=== PATIENT | female | born 1940 | race Caucasian/White ===

== ENCOUNTER 2019-10-14 19:26 | Inpatient (IN) | payer MEDICARE, SELFPAY ==
[2019-10-14] VITALS (7 sets, daily range): BP systolic 139–167; BP diastolic 80–104; PULSE 72–148; RESP 16–27; TEMP 36.8–37.1; O2SAT 96–99; BMI 18.9
--- NOTE | ~2019-10-14 | XR_ITS ---
EXAMINATION: XR chest 1V portable DATE: 10/21/2019 05:54 INDICATION: Pulmonary edema TECHNIQUE: frontal view of the chest was obtained. COMPARISON: Chest radiograph dated 10/20/2019, 10/19/2019 and 11/21/2018 FINDINGS: Chronic elevation of the right hemidiaphragm. Paramediastinal mass in the right upper lobe consistent with known lung cancer. No significant change in airspace opacities in the right perihilar region an d throughout the left lung. No pneumothorax or right-sided pleural effusion. Possible small left pleu ral effusion. Heart size is normal. Vertebroplasties at a few levels in the thoracic and upper lumbar spine. Cholecystectomy clips in the right upper quadrant. IMPRESSION: 1. No significant interval change in bilateral lung disease, left greater than right which could repr esent pulmonary edema versus pneumonia with possible small left pleural effusion. 2. Paramediastinal right upper lobe mass consistent with primary bronchogenic carcinoma. 3. Chronic elevation of the right hemidiaphragm consistent with phrenic nerve palsy. Reviewed, dictated and finalized at location A. IMPRESSION: 1. No significant interval change in bilateral lung disease, left greater than right which could represent pulmonary edema versus pneumonia with possible smal l left pleural effusion. 2. Paramediastinal right upper lobe mass consistent with primary bronchogenic c arcinoma. 3. Chronic elevation of the right hemidiaphragm consistent with phrenic nerve p alsy.
--- NOTE | ~2019-10-14 | XR_ITS ---
EXAMINATION: XR chest 1V portable DATE: 10/20/2019 08:22 INDICATION: Pulmonary edema. TECHNIQUE: A single frontal view of the chest was obtained. COMPARISON: Chest single view 10/19/2019, chest CT 07/20/2019 FINDINGS: The patient is rotated to her left. There is a mass in paramediastinal right upper lobe. Th ere are airspace opacities in right perihilar region and in all left lung zones. There is persistent elevation of right hemidiaphragm. No pleural effusion or pneumothorax. There is a prominent left para cardial fat pad. The heart size is normal. There are changes of vertebroplasty at multiple levels. Villegas rgical clips in the right upper quadrant are likely from cholecystectomy. IMPRESSION: 1. Multifocal lung disease with improvement on the right, consistent with pulmonary edema versus pneu monia. 2. Mass in right upper lobe, consistent with primary bronchogenic carcinoma. 3. Persistent elevation of right hemidiaphragm, consistent with phrenic nerve palsy. Reviewed, dictated and finalized at location A. IMPRESSION: 1. Multifocal lung disease with improvement on the right, consistent with pulmo nary edema versus pneumonia. 2. Mass in right upper lobe, consistent with primary bronchogenic carcinoma. 3. Persistent elevation of right hemidiaphragm, consistent with phrenic nerve p alsy.
--- NOTE | ~2019-10-14 | XR_ITS ---
EXAMINATION: XR chest 1V portable INDICATION: Pulmonary edema TECHNIQUE: Portable AP chest at 0730 hours COMPARISON: 10/21/2019 FINDINGS: Diffuse airspace opacities persist but have improved, particularly in the right lower lung zone. There is unchanged elevation of the right hemidiaphragm. A right upper lobe paramediastinal mas s is again noted. The heart size is normal. Vertebroplasty changes are noted. There is no pleural eff usion or pneumothorax. Surgical clips in the right upper quadrant are likely from prior cholecystecto my. IMPRESSION: 1. Diffuse lung disease with improvement, consistent with pulmonary edema and/or pneumonia. 2. Paramediastinal right upper lobe mass, consistent with primary bronchogenic carcinoma. Reviewed, dictated and finalized at location A. IMPRESSION: 1. Diffuse lung disease with improvement, consistent with pulmonary edema and/o r pneumonia. 2. Paramediastinal right upper lobe mass, consistent with primary bronchogenic carcinoma.
--- NOTE | ~2019-10-14 | XR_ITS ---
EXAMINATION: XR chest 1V portable DATE: 10/18/2019 06:24 INDICATION: Respiratory failure. TECHNIQUE: A single frontal view of the chest was obtained. COMPARISON: Chest single view 10/17/2019 FINDINGS: Again seen is a mass in paraspinal right upper lobe. There is a nodule in left upper lobe. There is persistent elevation of right hemidiaphragm. There are airspace opacities in right perihilar region and left lower lung zone. There is a small left pleural effusion. No pneumothorax. The heart size is normal. There are changes of vertebroplasty at multiple levels. The nasogastric tube tip is i n the distal stomach. Surgical clips in the right upper quadrant are likely from cholecystectomy. IMPRESSION: 1. Mass in right upper lobe, consistent with primary bronchogenic carcinoma. 2. Nodule in left upper lobe, consistent with metastatic disease. 3. Persistent elevation of right hemidiaphragm, consistent with phrenic nerve palsy. 4. Airspace opacities in right perihilar region and left lower lung zone with improvement on the left and worsening on the right, consistent with atelectasis versus pneumonia. 5. Small left pleural effusion with interval improvement. Reviewed, dictated and finalized at location A. IMPRESSION: 1. Mass in right upper lobe, consistent with primary bronchogenic carcinoma. 2. Nodule in left upper lobe, consistent with metastatic disease. 3. Persistent elevation of right hemidiaphragm, consistent with phrenic nerve p alsy. 4. Airspace opacities in right perihilar region and left lower lung zone with i mprovement on the left and worsening on the right, consistent with atelectasis versus pneumonia. 5. Small left pleural effusion with interval improvement.
--- NOTE | ~2019-10-14 | US_ITS ---
EXAMINATION: US art doppler w press LE NELA EXAM DATE: 10/16/2019 13:46 INDICATION: Cool extremities. TECHNIQUE: Segmental pressures and plethysmographic and Doppler waveforms of the brachial and lower e xtremity arteries were obtained. There is no prior study for comparison. FINDINGS: Right and left brachial artery pressures of 161 mm Hg and 166 mm Hg, respectively, are concordant (no rmal difference <= 30 mmHg). RIGHT LEG: The ankle-brachial index (JACKSON) is 0.58 (normal >= 0.9-1). The lower extremity ratios, segmental pressure gradients as follows; Dorsalis pedis: 0.46 (76 mmHg). Posterior tibial: 0.58 (96 mmHg). (Normal gradients <= 20-30 mmHg between adjacent levels on the same leg or the same levels on the two legs). Arterial waveforms are biphasic above the knee, monophasic below. LEFT LEG: The ankle-brachial index (JACKSON) is 0.66 (normal >= 0.9-1). The lower extremity ratios, segmental pressure gradients as follows; Dorsalis pedis: 0.66 (110 mmHg). Posterior tibial: 0.56 (93 mmHg). (Normal gradients <= 20-30 mmHg between adjacent levels on the same leg or the same levels on the two legs). Arterial waveforms are biphasic above the knee, monophasic below. IMPRESSION: 1. Right ankle-brachial index 0.58, mild to moderately decreased. 2. Left ankle-brachial index 0.66, mild to moderately decreased. 3. Segmental pressures as above. Reviewed, dictated and finalized at location A.
--- NOTE | ~2019-10-14 | XR_ITS ---
EXAMINATION: XR chest ET placement DATE: 10/15/2019 01:01 INDICATION: Intubation. TECHNIQUE: A single frontal view of the chest was obtained. COMPARISON: Chest single view 10/14/2019, chest CT 07/20/2019 FINDINGS: Again seen is marked elevation of right hemidiaphragm. There is a mass in paramediastinal r ight upper lobe. There is a nodule in left upper lobe. There are airspace opacities in the mid and lo wer lung zones. There is a small right pleural effusion. No pneumothorax. The heart size is normal. T he endotracheal tube tip is 4.8 cm above the jimbo. The nasogastric tube tip is beyond the inferior margin of the radiograph, but at least to the stomach. Surgical clips in the right upper quadrant are likely from cholecystectomy. There are changes of vertebroplasty at multiple levels. IMPRESSION: 1. Worsened airspace opacities in the mid and lower lung zones, consistent with atelectasis versus pn eumonia. 2. Mass in paramediastinal right upper lobe, consistent with primary bronchogenic carcinoma. 3. Nodule in left upper lobe, consistent with metastatic disease. 4. Unchanged marked elevation of right hemidiaphragm, likely secondary to phrenic nerve palsy. 5. Small right pleural effusion. Reviewed, dictated and finalized at location A. IMPRESSION: 1. Worsened airspace opacities in the mid and lower lung zones, consistent with atelectasis versus pneumonia. 2. Mass in paramediastinal right upper lobe, consistent with primary bronchogen ic carcinoma. 3. Nodule in left upper lobe, consistent with metastatic disease. 4. Unchanged marked elevation of right hemidiaphragm, likely secondary to phren ic nerve palsy. 5. Small right pleural effusion.
--- NOTE | ~2019-10-14 | CT_ITS ---
EXAMINATION: CT brain wo con INDICATION: Altered mental status COMPARISON: 07/22/2019 TECHNIQUE: Standard unenhanced head CT. The dose-length product (DLP) was 681.00 mGy-cm. The mA was a djusted according to patient size. Iterative reconstruction technique was employed. FINDINGS: Examination is limited by motion artifact and streak artifact from hands stabilizing the he ad. There is no acute intraparenchymal hemorrhage. No evidence of mass lesion. No evidence of acute i nfarction. There is mild periventricular and subcortical hypodensity probably related to small vessel ischemic disease. There is mild prominence of the sulci and ventricles related to cerebral atrophy. Intracranial calcified cerebral atherosclerosis is noted. There are no extra-axial collections. There is no mass effect or midline shift. The orbits and soft tissues are unremarkable. The visualized si nuses and mastoid air cells are well aerated. IMPRESSION: 1. No acute intracranial abnormality. 2. Age related findings. Reviewed, dictated and finalized at location A.
--- NOTE | ~2019-10-14 | XR_ITS ---
EXAMINATION: XR chest 1V portable DATE: 10/17/2019 06:28 INDICATION: Respiratory failure. TECHNIQUE: A single frontal view of the chest was obtained. COMPARISON: Chest single view 10/16/2019, chest CT 07/20/2019 FINDINGS: Again seen is a mass in paramediastinal right upper lobe. There is a nodule in left upper l obe. There is persistent elevation of right hemidiaphragm, consistent with phrenic nerve palsy. There is mild atelectasis at right lung base. There are airspace opacities in left lower lung zone. There is a small left pleural effusion. No pneumothorax. The heart size is normal. There are changes of antonio tebroplasty at multiple levels. The endotracheal tube tip is 1.3 cm above the jimbo. The nasogastric tube tip is in the distal stomach. Surgical clips in the right upper quadrant are likely from cholec ystectomy. IMPRESSION: 1. Mass in paramediastinal right upper lobe, consistent with primary bronchogenic carcinoma. 2. Nodule in left upper lobe, consistent with metastatic disease. 3. Worsened airspace opacities at left lung base, consistent with atelectasis versus pneumonia. 4. Worsened small left pleural effusion. 5. Persistent elevation of right hemidiaphragm, consistent with phrenic nerve palsy. Reviewed, dictated and finalized at location A. IMPRESSION: 1. Mass in paramediastinal right upper lobe, consistent with primary bronchogen ic carcinoma. 2. Nodule in left upper lobe, consistent with metastatic disease. 3. Worsened airspace opacities at left lung base, consistent with atelectasis v ersus pneumonia. 4. Worsened small left pleural effusion. 5. Persistent elevation of right hemidiaphragm, consistent with phrenic nerve p alsy.
--- NOTE | ~2019-10-14 | XR_ITS ---
EXAMINATION: XR abdomen NG/feed tube insert DATE: 10/15/2019 01:01 INDICATION: Nasogastric tube placement. TECHNIQUE: An upright view of the abdomen was obtained. COMPARISON: Abdomen radiograph 10/13/2018 FINDINGS: The lower abdomen is excluded. There are no visible dilated loops of bowel. Surgical clips in the right upper quadrant are likely from cholecystectomy. The nasogastric tube tip is in the dist al stomach. IMPRESSION: 1. Nasogastric tube tip in the distal stomach. Reviewed, dictated and finalized at location A.
--- NOTE | ~2019-10-14 | US_ITS ---
EXAMINATION: US renal BI DATE: 10/19/2019 09:12 INDICATION: Acute kidney injury. TECHNIQUE: Multiple ultrasound grayscale images of the kidneys were obtained. COMPARISON: CT abdomen and pelvis 07/20/2018 FINDINGS: The right kidney is obscured by bowel The left kidney measures 10.2 x 4.1 x 4.0 cm. The left kidney d emonstrates normal parenchymal echogenicity. There is no left-sided hydronephrosis. The bladder is no t well visualized. IMPRESSION: 1. Normal sized left kidney. No left-sided hydronephrosis. Right kidney not visualized. Reviewed, dictated and finalized at location A. IMPRESSION: 1. Normal sized left kidney. No left-sided hydronephrosis. Right kidney not vi sualized.
--- NOTE | ~2019-10-14 | XR_ITS ---
EXAMINATION: XR chest 1V portable DATE: 10/19/2019 07:39 INDICATION: Respiratory distress. TECHNIQUE: A single frontal view of the chest was obtained. COMPARISON: Chest single view 10/18/2019 FINDINGS: Again seen is a mass in paraspinal right upper lobe. There are patchy airspace opacities in volving all lung zones bilaterally. There is persistent elevation of right hemidiaphragm. There is a small left pleural effusion. No pneumothorax. The heart size is normal. There are changes of vertebro plasty at multiple levels. There is a healed fracture of right seventh rib. Surgical clips in the rig ht upper quadrant are likely from cholecystectomy. IMPRESSION: 1. Worsened diffuse lung disease, consistent with pulmonary edema versus pneumonia. 2. Mass in right upper lobe, consistent with primary bronchogenic carcinoma. 3. Persistent elevation of right hemidiaphragm, consistent with phrenic nerve palsy. Reviewed, dictated and finalized at location A. IMPRESSION: 1. Worsened diffuse lung disease, consistent with pulmonary edema versus pneumo clarisse. 2. Mass in right upper lobe, consistent with primary bronchogenic carcinoma. 3. Persistent elevation of right hemidiaphragm, consistent with phrenic nerve p alsy.
--- NOTE | ~2019-10-14 | XR_ITS ---
EXAMINATION: XR chest 1V portable DATE: 10/16/2019 06:10 INDICATION: Respiratory failure. TECHNIQUE: A single frontal view of the chest was obtained. COMPARISON: Chest single view 10/15/2019 FINDINGS: Again seen is a mass in paramediastinal right upper lobe. Again seen is a nodule in left up per lobe. There are airspace opacities in right mid and lower lung zones and left lower lung zone. No pleural effusion or pneumothorax. The heart size is normal. The endotracheal tube tip is 1.5 cm abov e the jimbo. The nasogastric tube tip is beyond the inferior margin of the radiograph, but at least to the stomach. Surgical clips in the right upper quadrant are likely from cholecystectomy. There are changes of vertebroplasty at multiple levels. IMPRESSION: 1. Airspace opacities in right mid and lower lung zones and left lower lung zones with worsening on t he left, consistent with atelectasis versus pneumonia. 2. Mass in paramediastinal right upper lobe, consistent with primary bronchogenic carcinoma. 3. Nodule in left upper lobe, consistent with metastatic disease. Reviewed, dictated and finalized at location A. IMPRESSION: 1. Airspace opacities in right mid and lower lung zones and left lower lung zon es with worsening on the left, consistent with atelectasis versus pneumonia. 2. Mass in paramediastinal right upper lobe, consistent with primary bronchogen ic carcinoma. 3. Nodule in left upper lobe, consistent with metastatic disease.
--- NOTE | ~2019-10-14 | XR_ITS ---
EXAMINATION: XR chest 1V portable INDICATION: Shortness of breath, transient alteration of awareness TECHNIQUE: Portable AP chest at 2009 hours COMPARISON: 07/20/2019 FINDINGS: There is a mild diffuse interstitial pattern. There is unchanged elevation of the right hem idiaphragm. Again noted is a paramediastinal mass of the right upper lobe. No pleural effusion or pne umothorax is identified. Cardiomegaly is noted. There are vertebroplasty changes of the spine. IMPRESSION: 1. Cardiomegaly with possible mild pulmonary edema. 2. Mediastinal mass of the right upper lobe, consistent with known adenocarcinoma. Reviewed, dictated and finalized at location A. IMPRESSION: 1. Cardiomegaly with possible mild pulmonary edema. 2. Mediastinal mass of the right upper lobe, consistent with known adenocarcino ma.
--- NOTE | 2019-10-14 19:29 | ED.SOB ---
HPI - SOB/Dyspnea General Chief Complaint: Shortness of Breath/Dyspnea Stated Complaint: respiratory distress Time Seen by Provider: 10/14/19 19:29 Source: family and EMS Mode of arrival: EMS Limitations: no limitations History of Present Illness HPI Narrative: Patient is a 79 year old female who presents to the emergency department via EMS, from home with complaints of shortness of breath. Per EMS, patient has a history of stage 4 lung cancer and she recently had changes in her medications. Patients daughter and are her power of assistant district attorney's and they state that she is a full code. EMS placed her on 15 liters of oxygen en route. She later spoke 2 complete sentences and she denies abdominal pain, chest pain, headache, or back pain. Per patients daughter, she is supposed to get a port put in on in 2 days and is supposed to start IV chemo. She has been seeing Dr. Ari Quarles at [facility]. She saw her oncologist last and had her amlodipine changed from taking it at night to taking it during the day. Patients blood pressure has been up since January and she has stage 4 kidney disease. She was supposed to see a cardiology oncologist. Patient has a history of orthostatic hypotension and was seeing Dr. Lipscomb for it. Daughter states that today her pulse was 165 and when she stood up it was 70. She has been having frequent falls. She is also supposed to cut down on her steroids. Patient lives at home with and daughter. She has a home health nurse that sees her. MD elicited complaint: shortness of breath Pertinent past history: other (stage 4 lung cancer) Timing: progressively worsening Known history of: other (stage 4 lung cancer) Treatment prior to arrival: oxygen Related Data Home Medications Medication Instructions Recorded Confirmed acetaminophen 500 mg tablet 1,000 mg PO .q7-8h PRN tablet 05/14/19 07/20/19 amlodipine 10 mg tablet 10 mg PO DAILY 05/14/19 07/20/19 aspirin 81 mg tablet,delayed 81 mg PO DAILY 05/14/19 07/20/19 release calcitriol 0.25 mcg capsule 0.25 mcg PO DAILY 05/14/19 07/20/19 calcium carbonate 400 mg calcium 400 mg PO DAILY 05/14/19 07/20/19 (1,000 mg) chewable tablet cyclobenzaprine 10 mg tablet 5 mg PO TID tablet 05/14/19 07/20/19 denosumab 60 mg/mL subcutaneous 60 mg SUB-Q [id number] 05/14/19 07/20/19 syringe docusate sodium 100 mg capsule 100 mg PO BID 05/14/19 07/20/19 ergocalciferol (vitamin D2) 1,250 50,000 unit PO WEEKLY 05/14/19 07/20/19 mcg (50,000 unit) capsule escitalopram oxalate 10 mg tablet 10 mg PO DAILY 05/14/19 07/20/19 fludrocortisone 0.1 mg tablet 0.1 mg PO DAILY 05/14/19 07/20/19 hydrocodone 7.5 mg-acetaminophen 1 tablet PO TID PRN tablet 05/14/19 07/20/19 325 mg tablet levothyroxine 88 mcg tablet 88 mcg PO DAILY 05/14/19 07/20/19 ondansetron 4 mg disintegrating 8 mg PO Q12H tablet 05/14/19 07/20/19 tablet pantoprazole 40 mg tablet,delayed 40 mg PO QAM 05/14/19 07/20/19 release polyethylene glycol 3350 17 17 gm PO DAILY 05/14/19 07/20/19 gram/dose oral powder prednisone 5 mg tablet 5 mg PO DAILY 05/14/19 07/20/19 diclofenac sodium 1 % gel topical 2 gm TOPICAL QID 05/20/19 07/20/19 kit Allergies Allergy/AdvReac Type Severity Reaction Status Date / Time ciprofloxacin Allergy Unknown Unknown Verified 10/14/19 19:41 butorphanol AdvReac Unknown HYPOTENSION Verified 10/14/19 19:41 meperidine AdvReac Unknown HYPOTENSION Verified 10/14/19 19:41 oxycodone AdvReac Unknown SEVERE Verified 10/14/19 19:41 CONFUSION Contrast Media Allergy Intermediate Other Uncoded 07/20/19 03:08 Review of Systems Review of Systems: All systems reviewed & are unremarkable except as noted in HPI and below Cardiovascular: Cardiovascular: Denies chest pain Gastrointestinal: Gastrointestinal: Denies abdominal pain Musculoskeletal: Musculoskeletal: Denies back pain Neurologic: Denies headache(s) PMFSH Past Medical History Medical History (Rev
--- NOTE | 2019-10-14 19:44 | ECG_ITS ---
Measurements Intervals [place] Rate: 153 P: DE: 0 QRS: 109 QRSD: 131 T: -13 QT: 272 QTc: 434 Interpretive Statements ATRIAL FIBRILLATION WITH RAPID VENTRICULAR RESPONSE RIGHT AXIS DEVIATION RIGHT BUNDLE BRANCH BLOCK BASELINE ARTIFACT- V1-V3 ABNORMAL ECG Electronically Signed On 10-15-2019 7:09:29 CDT by Dawson Zamora D.O.
--- NOTE | 2019-10-14 19:44 | PC.NURSE ---
EDP in room at this time.
[2019-10-14 20:02] LABS: Basophils Percent Auto 0.2 % (0.2-1.2); Hematocrit 41.7 % (37.0-47.0); Hemoglobin 12.7 g/dL (12.0-15.0); Immature Granulocyte Absolute 0.09 K/mm3 (0.00-0.031); Immature Granulocyte Percent A 0.8 % (0-0.5); Lymphocytes Absolute Auto 0.47 K/mm3 (0.9-3.2); Lymphocytes Percent Auto 4.3 % (18.3-44.2); Mean Corpuscular HGB Conc 30.5 g/dl (32-36); Mean Corpuscular Hemoglobin 30.2 pg (26-34); Monocytes Absolute Auto 0.3 K/mm3 (0.1-0.6); Neutrophils Percent Auto 91.7 % (45.5-73.1); Platelet Count Result 236 k/mm3 (150-375); Red Blood Count 4.21 M/mm3 (4.2-5.4); Red Cell Distribution Width 13.5 % (11.5-14.5); White Blood Count 10.9 K/mm3 (4.5-10.0)
[2019-10-14 20:09] LABS: Ovalocytes 1+ (NORMAL); Platelet Estimate Adequate (Adequate)
[2019-10-14] MEDS: SODIUM CHLORIDE 0.9% IV 500 ML 999 ML IV CONT (20:12)
[2019-10-14 20:14] LABS: Lactic Acid 4.7 mmol/L (0.7-2.1)
[2019-10-14 20:15] LABS: Albumin Level 4.3 g/dL (3.5-5.1); Alkaline Phosphatase 51 U/L (38-126); Aspartate Amino Transferase 82 U/L (14-36); Bilirubin,Total 1.4 mg/dL (0.2-1.3); Blood Urea Nitrogen 30 mg/dL (7-17); Calcium 9.2 mg/dL (8.4-10.2); Carbon Dioxide 27 mmol/L (22-30); Chloride 95 mmol/L (98-107); Estimated Glomerular Filt Rate 26; Glucose 219 mg/dL (65-105); Potassium 4.4 mmol/L (3.4-5.0); Sodium 136 mmol/L (137-145)
[2019-10-14 20:21] LABS: Alanine Aminotransferase 45 U/L (4-35)
[2019-10-14 20:22] LABS: NT Pro B Type Natriuretic Pept 9620 PG/ML (5-100)
[2019-10-14 20:28] LABS: Troponin I 0.106 ng/mL (0.000-0.034)
[2019-10-14] MEDS: LORAZEPAM INJ 2 MG/ML VIAL 0.5 MG IV PUSH (20:44)
--- NOTE | 2019-10-14 21:00 | ECG_ITS ---
Measurements Intervals [place] Rate: 73 P: -4 NM: 167 QRS: 70 QRSD: 140 T: 22 QT: 422 QTc: 466 Interpretive Statements SINUS RHYTHM ATRIAL PREMATURE COMPLEX RIGHT BUNDLE BRANCH BLOCK ABNORMAL ECG Electronically Signed On 10-15-2019 7:10:43 CDT by Dawson Zamora D.O.
[2019-10-14 21:46] LABS: Add Urine Microscopic? YES; Appearance Urine Clear (Clear); Bacteria Urine Trace /hpf; Bilirubin Urine Negative (Negative); Blood Urine Negative (Negative); Color Urine Yellow (Yellow); Glucose Urine UA Negative (Negative); Hyaline Casts Urine 15-19 /lpf; Ketones Urine Negative (Negative); Leukocyte Esterase Ur Negative LEU/UL (Negative); Mucus Urine Rare /lpf; Nitrate Urine Negative (Negative); Protein Urine 3+ mg/dL (Negative); Specific Grav Ur 1.015 (1.001-1.035); Squamous Epithelial Cell Urine Rare /hpf (Few); Urobilinogen Urine Negative mg/dL (<2.0); WBC Urine 0-3 /hpf
[2019-10-14 23:16] LABS: Alveolar/Arterial O2 Gradient 571.5 mmHg; Base Excess ABG 3.3 mEq/l (+/-2.0); Carboxyhemoglobin 0.3 % THb (0-2.0); Fractional Inspired Oxygen 100 %; Methemoglobin ABG 0.2 %THb (0-1.5); Oxygen Content ABG 16.5 %vol (16.0-22.0); Oxygen Saturation ABG 94.3 % (95.0-100.0); Oxyhemoglobin 94.2 % THb (90.0-100.0); PO2 ABG 78.8 mmHg (80.0-100.0); PO2 FiO2 Ratio Arterial Blood 0.79 %; Reduced Hemoglobin 5.3 %THb (0-5.0); Total Hemoglobin 12.4 g/dL (12.0-18.0); pH ABG 7.312 (7.350-7.450)
[2019-10-14 23:17] LABS: Device NON-REBREATHER MASK; Modified Allen's Test Unable to perform; PCO2 ABG 62.7 mmHg (35.0-45.0); Site Drawn LEFT RADIAL
--- NOTE | 2019-10-14 23:19 | PM.IMHP ---
H&P: HPI History of Present Illness Chief complaint: Altered mental status Narrative: Laura Capps is a 79 year old female with a past medical history of stage IV non-small cell lung cancer, COPD with emphysema, chronic kidney disease stage III and SLE who presented to the ER with altered mental status and respiratory distress. Patient arrived to the ER in severe respiratory distress with accessory muscle use and inability to talk. Patient's pulse ox was 78% on 3 L at home. She was placed on a non-rebreather and her oxygen saturations increased to 97%. The patient is usually on 2 L nasal cannula at home. According to the ER note the patient's daughter reported that patient was supposed to get a port placed in 2 days to start IV chemotherapy. The patient is treated by Dr. Ari saenz at [facility]. She she last saw her oncologist 5 days ago. Her amlodipine was switched from nighttime dosing to taking and in the morning. Patient's blood pressure had been up since January. However during prior evaluations the patient's daughter had stated that the patient's doctors want the patient's blood pressures to be slightly above expected values due to history of orthostatic hypotension. The patient's blood pressure was 165 systolic but when she stood up it dropped to 70. Patient has having frequent falls. The patient was recently told the cut back her steroids. During her recent hospitalization the patient and her family reported that the patient was was have vocal cord transplants 2 days after she was discharged in July which according to the ER records it appears that this did occur. While in the ER the patient was in AFib RVR received a 10 mg Cardizem bolus and was started on a Cardizem drip. Subsequently her rhythm returned to normal sinus rhythm. Per ER physician report once the patient's rhythm had returned to normal the patient woke up and was sitting up and talking. The patient requested something for her anxiety and she received a half a mg of Ativan IV. However the patient remained on a non-rebreather at 15 L of oxygen. ER staff was unable to wean the patient's oxygen requirement. Nursing staff called me when the patient arrived to the IMU before she could before the patient was even removed from the ER stretcher. The patient was noted to be tachypneic with respiratory rate of around 30 with significant accessory muscle use. She would open her eyes to noxious stimuli but would not otherwise respond. Decision was made at that time to place the patient in the ICU instead of IMU and obtain a stat ABG. The patient's ABG demonstrated respiratory acidosis with pCO2 of 62.7. The patient does not have a history of chronic CO2 retention. The patient's family reiterated that patient was a full code and would want the patient intubated if she needed to be. Subsequently the patient was intubated and placed on the ventilator. Per the ER physician report the patient stated that she wanted to live for least another 30 days. Review of Systems Review of Systems: ROS unobtainable: Yes unobtainable due to medical condition PMFSH Past Medical History Medical History (Updated 10/15/19 @ 03:28 by Ramona Staley, ) Anxiety Chronic anemia Upper and lower endoscopies per Dr. Robertson in December 2018 showed proximal esophageal ulcer associated with radiation therapy and sigmoid diverticulosis as well as internal hemorrhoids, respectively. Chronic kidney disease Stage 3 to 4. Baseline creatinine appears to run between 1.3 and 1.90. Chronic pain syndrome On long-term opioid therapy. Chronic respiratory failure COPD with emphysema Degenerative disc disease With chronic lumbago and history of vertebral compression fractures status post vertebroplasty. Diastolic congestive heart failure Echocardiogram November 2018 demonstrating mild concentric left ventricular hypertrophy with sigmoid hypertrophy of the septum, diastolic dysfunction, increased left heart filling p
[2019-10-15] VITALS (21 sets, daily range): BP systolic 147–188; BP diastolic 67–122; PULSE 63–88; RESP 15–20; TEMP 36.4–37.1; O2SAT 97–100; BMI 18.9
--- NOTE | 2019-10-15 | ECHO_ITS ---
Patient Info Name: Laura Capps Age: 79 years : 1940 Gender: Female Ht: 62 in Wt: 104 lbs BSA: 1.43 m2 HR: 70 bpm BP: 167 / 77 mmHg Heart Rhythm: Sinus Rhythm Technical Quality: Good Exam Date: 10/15/2019 1:34 PM Exam Location: [facility] Patient Status: Inpatient Admit Date: 10/15/2019 Staff Ordering Physician: Delfina Clemens MD Nursing Services Manager: Luis Dorsey RDCS Attending Provider: Ramona Staley DO Referring Physician: Sarath JO; Exam Type: CA echo doppler color flow Study Info Indications I48.0 - Paroxysmal atrial fibrillation Complete two-dimensional, color flow and Doppler transthoracic echocardiogram is performed. Strain analysis performed. History/Risk Factors Atrial fibrillation; elevated trops, CKD IV, COPD, HFpEF, HTN, acute respiratory failure w/ hypoxia, NSCLC. Summary 1. Left ventricular systolic function is mildly reduced, estimated at 50-55%. 2. Left ventricular chamber dimension is normal. 3. There is moderately increased left ventricular wall thickness. 4. The left ventricular diastolic function is grade I diastolic dysfunction. 5. Left atrial chamber dimension is severely enlarged. 6. There is moderate aortic valve sclerosis. 7. There is mild to moderate aortic valve regurgitation. 8. There is mild mitral valve stenosis. 9. There is mild to moderate mitral valve regurgitation. 10. The mitral valve has thickened leaflets and calcified annulus. 11. There is mild tricuspid valve regurgitation. 12. Moderate pulmonary hypertension, estimated pulmonary arterial systolic pressure is 47 mmHg. 13. There is mild pulmonic regurgitation. Left Ventricle Left ventricular systolic function is mildly reduced, estimated at 50-55%. Left ventricular chamber dimension is normal. There is moderately increased left ventricular wall thickness. The left ventricular diastolic function is grade I diastolic dysfunction. Right Ventricle Right ventricular chamber dimension is normal. Right ventricular systolic function is normal. Left Atria Left atrial chamber dimension is severely enlarged. Right Atria Right atrial chamber dimension is normal. Atrial Septum Intact interatrial septum visualized by color flow imaging. Aortic Valve The aortic valve is trileaflet. There is moderate aortic valve sclerosis. There is no aortic valve stenosis. There is mild to moderate aortic valve regurgitation. Pulmonic Valve The pulmonic valve is normal. There is no pulmonic valve stenosis. There is mild pulmonic regurgitation. Mitral Valve The mitral valve has thickened leaflets and calcified annulus. There is mild mitral valve stenosis. There is mild to moderate mitral valve regurgitation. Tricuspid Valve The tricuspid valve leaflets are normal. There is no significant tricuspid valve stenosis. There is mild tricuspid valve regurgitation. Moderate pulmonary hypertension, estimated pulmonary arterial systolic pressure is 47 mmHg. Pericardium/Pleural The pericardium appears normal. There is trivial pericardial effusion. Inferior Vena Cava Dilated inferior vena cava with <50% collapse upon inspiration consistent with elevated right atrial pressure, 10 mmHg. Aorta The aortic root size at the sinus of Valsalva is normal. The prox ascending aorta size is normal. There is mild aortic atherosclerosis. Left Ventricular Outflow Tract
--- NOTE | 2019-10-15 00:06 | PC.NURSE ---
This patient, Laura Capps, was transferred to ICU-9 FROM IMU 202 DUE TO RESP. DISTRESS 10/14/19 at 2330. Personal belongings sent with patient. Belongings list checked and signed with receiving [ ]. Report given to SNOW CAMERON. Appropriate documentation sent with patient. HERE AT BS AFTER CALLING HER ABOUT PT. RESP. DISTRESS. PT. WAS TRANSFERRED TO ICU FOR POSS. INTUBATION. UPON PT. BEING ADM. TO RM 202 BEFORE REMOVING PT. FROM STRETCHER I ASKED EDRN ABOUT HER BREATHING WITH 100% NON-REBREATHING. I NOTED PT. USING ALL ACCESSORY MUSCLES AND BREATHING OVER [address]. I CALL[address] DR[address] DHZ TO SEE PT. AFTER ASSESSED PT. SHE DECIDED TO ADMIT TO ICU INSTEAD OF IMU.
[2019-10-15 00:13] LABS: Partial Thromboplastin Time 25.7 SECONDS (22.3-36.8)
[2019-10-15 00:14] LABS: Lactic Acid Reflex 1.2 mmol/L (0.7-2.1)
--- NOTE | 2019-10-15 00:17 | P.PCNBED_ITS ---
Procedures Intubation: Intubation Date: 10/15/19 Intubation Time: 00:05 A pre- procedural Time-Out was completed immediately before starting the procedure and confirmed: Patient Identification, Site, Procedure, Patient Position and the Availability of Requisite Equipment: Yes Sedative: etomidate Mg given: 15 Paralytic: succinylcholine Mg given: 15 Laryngoscope: fiber optic video scope ET tube size: 6.5 Tube secured depth (cm): 22 Tube secured locat ion: teeth Tube placement confirmation: visualized tube passing through cords, equal breath sounds bilaterally, no breath sounds over epigastrium and confirmation by capnometry Patient tolerated procedure: well Intubation complications: none
[2019-10-15] MEDS: PROPOFOL IV EMULSION 100 ML 5.6 MG IV CONT (00:20)
[2019-10-15 01:10] LABS: Troponin I 0.135 ng/mL (0.000-0.034)
[2019-10-15 01:34] LABS: Alveolar/Arterial O2 Gradient 377.7 mmHg; Carboxyhemoglobin 0.3 % THb (0-2.0); Fractional Inspired Oxygen 70 %; HCO3 ABG 28.9 mEq/l (22.0-26.0); Methemoglobin ABG 0.3 %THb (0-1.5); Oxygen Content ABG 16.4 %vol (16.0-22.0); Oxygen Saturation ABG 96.3 % (95.0-100.0); Oxyhemoglobin 95.4 % THb (90.0-100.0); PCO2 ABG 40.3 mmHg (35.0-45.0); PO2 ABG 78.1 mmHg (80.0-100.0); PO2 FiO2 Ratio Arterial Blood 1.12 %; Total Hemoglobin 12.2 g/dL (12.0-18.0); pH ABG 7.474 (7.350-7.450)
[2019-10-15 01:35] LABS: Arterial Blood Gas PEEP 5 cmH2O; Arterial Blood Gas Tidal Volume 650 ml; Arterial Blood Gas Vent Mode CMV; Arterial Blood Gas Ventilator rate 20 /MIN; Device VENTILATOR; Modified Allen's Test Unable to perform; Site Drawn RIGHT RADIAL
[2019-10-15 02:52] LABS: Basophils Percent Auto 0.2 % (0.2-1.2); Hematocrit 36.8 % (37.0-47.0); Hemoglobin 11.5 g/dL (12.0-15.0); Immature Granulocyte Absolute 0.06 K/mm3 (0.00-0.031); Immature Granulocyte Percent A 0.5 % (0-0.5); Lymphocytes Percent Auto 4.1 % (18.3-44.2); Mean Corpuscular HGB Conc 31.3 g/dl (32-36); Mean Corpuscular Hemoglobin 30.2 pg (26-34); Mean Corpuscular Volume 96.6 fl (80-100); Mean Platelet Volume 10.3 fl (7.4-10.4); Monocytes Absolute Auto 0.7 K/mm3 (0.1-0.6); Monocytes Percent Auto 5.7 % (2.6-8.5); Neutrophils Absolute Auto 10.9 K/mm3 (1.3-6.7); Neutrophils Percent Auto 89.5 % (45.5-73.1); Platelet Count Result 161 k/mm3 (150-375); Red Blood Count 3.81 M/mm3 (4.2-5.4); Red Cell Distribution Width 13.4 % (11.5-14.5); White Blood Count 12.2 K/mm3 (4.5-10.0)
[2019-10-15] MEDS: SODIUM CHLORIDE 0.9% IV 1,000 ML 999 ML IV CONT (03:00)
[2019-10-15 03:03] LABS: Alanine Aminotransferase 34 U/L (4-35); Albumin Level 3.3 g/dL (3.5-5.1); Alkaline Phosphatase 38 U/L (38-126); Aspartate Amino Transferase 44 U/L (14-36); Blood Urea Nitrogen 35 mg/dL (7-17); Calcium 8.7 mg/dL (8.4-10.2); Carbon Dioxide 30 mmol/L (22-30); Chloride 96 mmol/L (98-107); Estimated CRCL calculation 17 ml/min; Estimated Glomerular Filt Rate 27; Glucose 94 mg/dL (65-105); Potassium 4.1 mmol/L (3.4-5.0); Sodium 133 mmol/L (137-145)
[2019-10-15 03:31] LABS: Troponin I 0.146 ng/mL (0.000-0.034)
[2019-10-15] MEDS: RAPID SEQUENCE INTUBATION KIT 1 EACH ×2 (04:59)
[2019-10-15] MEDS: LEVOTHYROXINE SODIUM INJ 100 MCG/5 ML VIAL 50 MCG IV PUSH (06:11)
[2019-10-15] MEDS: methylPREDNISolone SOD SUCC 40 MG VIAL IV PUSH ×3 (06:11→21:15)
[2019-10-15] MEDS: FAMOTIDINE 20 MG/2 ML VIAL IV PUSH ×2 (08:05→21:15)
[2019-10-15 09:10] LABS: Alveolar/Arterial O2 Gradient 218.4 mmHg; Base Excess ABG 3.3 mEq/l (+/-2.0); Device VENTILATOR; Fractional Inspired Oxygen 50 %; HCO3 ABG 26.7 mEq/l (22.0-26.0); Modified Allen's Test Pass; Oxygen Content ABG 17.2 %vol (16.0-22.0); Oxygen Saturation ABG 97.8 % (95.0-100.0); Oxyhemoglobin 96.5 % THb (90.0-100.0); PCO2 ABG 36.4 mmHg (35.0-45.0); PO2 ABG 97.2 mmHg (80.0-100.0); PO2 FiO2 Ratio Arterial Blood 1.94 %; Site Drawn RIGHT RADIAL; Total Hemoglobin 12.6 g/dL (12.0-18.0); pH ABG 7.483 (7.350-7.450)
[2019-10-15 09:11] LABS: Arterial Blood Gas PEEP 5 cmH2O; Arterial Blood Gas Tidal Volume 350 ml; Arterial Blood Gas Vent Mode CMV; Arterial Blood Gas Ventilator rate 15 /MIN
--- NOTE | 2019-10-15 09:39 | WPDCNINT ---
Assessment and Plan Assessment and plan (1) Acute and chronic respiratory failure with hypoxia: Code(s): J96.21 - Acute and chronic respiratory failure with hypoxia Status: Chronic Assessment and Plan: patient presented with altered mental status, hypercapnic respiratory failure requiring intubation. could be related to COPD exacerbation, pneumonia. Elevated right hemidiaphragm - Chest x-ray showed airspace opacities in middle and lower lung zones consistent with atelectasis versus pneumonia. Worsened paramediastinal right upper lobe consistent with primary bronchogenic carcinoma. - Patient was intubated on 10/14/2019 - remains on CMV mode of ventilation, 5 of PEEP and 50% FiO2. - Will add albuterol and Spiriva MDI sputum cultures - continue ceftriaxone and doxycycline - continue Solu-Medrol - (2) Hypertension: Code(s): I10 - Essential (primary) hypertension Status: Acute Assessment and Plan: patient normally hypertensive, will maintain blood pressure is 160-180 mmHg - will start home amlodipine - hydralazine IV p.r.n. for systolic greater than 180 mmHg (3) Non-small cell lung cancer: Code(s): C34.90 - Malignant neoplasm of unspecified part of unspecified bronchus or lung Status: Acute Assessment and Plan: status post chemotherapy and radiation. - Patient follows an oncologist at [facility] at [facility]. - Was supposed to start chemotherapy after getting Port-A-Cath placed (4) Diastolic congestive heart failure: Code(s): I50.30 - Unspecified diastolic (congestive) heart failure Status: Acute Assessment and Plan: patient had an echocardiogram in November 2018 which showed EF of 65-70%, diastolic dysfunction and mild pulmonary hypertension (5) Altered mental status: Qualifiers: Altered mental status type: delirium Qualified Code(s): R41.0 - Disorientation, unspecified Code(s): R41.82 - Altered mental status, unspecified Status: Acute Assessment and Plan: patient initially presented with altered mental status, CT scan of the head in the ED did not show any acute intracranial abnormalities. Patient was given Ativan in the ED which resulted increased CO2 retention hypercapnic respiratory failure requiring intubation. Patient also has a history of dysphagia and vocal cord dysfunction and has a high risk for aspiration. (6) Atrial fibrillation with rapid ventricular response: Code(s): I48.91 - Unspecified atrial fibrillation Status: Acute Assessment and Plan: Patient into AFib RVR, placed on Cardizem infusion after a Cardizem bolus in the ED - . Patient converted to sinus rhythm and Cardizem infusion was stopped. (7) Elevated troponin: Code(s): R79.89 - Other specified abnormal findings of blood chemistry Status: Acute Assessment and Plan: Patient with elevated troponin likely related to AFib RVR, COPD exacerbation, acute respiratory failure - troponins have plateaued, will recheck troponin (8) Chronic kidney disease, stage 3: Code(s): N18.3 - Chronic kidney disease, stage 3 (moderate) Status: Acute Assessment and Plan: patient with chronic kidney disease stage 3 - urine output has been adequate - continue monitor urine output, electrolytes and renal function (9) DVT prophylaxis: Code(s): Z29.9 - Encounter for prophylactic measures, unspecified Status: Acute Assessment and Plan: DVT prophylaxis: SCDs, will add renally dosed Lovenox SQ stress ulcer prophylaxis: famotidine Additional Plan will discuss with family and updated them with patient's condition and plan of care. Code status: Full code Critical care time spent: 44 minutes Due to a high probability of clinically significant, life threatening deterioration, the patient required my highest level of preparedness to intervene emergently
[2019-10-15] MEDS: PROPOFOL IV EMULSION 100 ML 14.1 MG IV CONT ×3 (11:26→22:05)
[2019-10-15] MEDS: hydrALAZINE HCL 20 MG/ML VIAL 10 MG IV PUSH ×2 (11:27→22:45)
[2019-10-15 11:34] LABS: Glucose Point of Care 67 (65-105)
[2019-10-15] MEDS: DEXTROSE 50% 25 GM/50 ML SYRINGE IV PUSH ×2 (11:39→18:00)
[2019-10-15 12:04] LABS: Glucose Point of Care 116 (65-105)
[2019-10-15 12:41] LABS: Troponin I 0.089 ng/mL (0.000-0.034)
--- NOTE | 2019-10-15 13:02 | PM.IMPN ---
Progress Note: A&P Assessment and Plan (1) Acute and chronic respiratory failure with hypoxia: Code(s): J96.21 - Acute and chronic respiratory failure with hypoxia Status: Chronic Assessment and Plan: Sedated on ventilator with management per accounts receivable analyst. Continue IV steroids and Spiriva. Also on IV doxycycline and ceftriaxone to cover empirically for infection. Blood cultures pending. Will monitor. (2) Altered mental status: Qualifiers: Altered mental status type: delirium Qualified Code(s): R41.0 - Disorientation, unspecified Code(s): R41.82 - Altered mental status, unspecified Status: Acute Assessment and Plan: May have been result of Ativan administration in ER. Now sedated on ventilator. Will reassess once off sedation. (3) Atrial fibrillation with rapid ventricular response: Code(s): I48.91 - Unspecified atrial fibrillation Status: Acute Assessment and Plan: Started on IV diltiazem in ER but discontinued with return to sinus rhythm. Telemetry reviewed on 10/15/2019 with current sinus rhythm. Will continue to monitor. (4) Hypertension: Qualifiers: Hypertension type: essential hypertension Qualified Code(s): I10 - Essential (primary) hypertension Code(s): I10 - Essential (primary) hypertension Status: Acute Assessment and Plan: Blood pressure reviewed on 10/15/2019 with elevated readings. Home amlodipine restarted. IV hydralazine available as needed. Will continue to monitor and adjust treatment as needed. (5) Non-small cell lung cancer: Qualifiers: Laterality: unspecified laterality Qualified Code(s): C34.90 - Malignant neoplasm of unspecified part of unspecified bronchus or lung Code(s): C34.90 - Malignant neoplasm of unspecified part of unspecified bronchus or lung Status: Acute Assessment and Plan: Known Stage IV disease. Was to have port placed and start chemotherapy. Will need to reassess after discharge. (6) Chronic kidney disease, stage 3: Code(s): N18.3 - Chronic kidney disease, stage 3 (moderate) Status: Acute Assessment and Plan: Creatinine 1.80 today which appears to be within her baseline based on records here. Will follow. (7) Diastolic congestive heart failure: Qualifiers: Heart failure chronicity: chronic Qualified Code(s): I50.32 - Chronic diastolic (congestive) heart failure Code(s): I50.30 - Unspecified diastolic (congestive) heart failure Status: Acute Assessment and Plan: Echocardiogram in November 2018 with EF 65-70%, diastolic dysfunction and mild pulmonary hypertension. Current echocardiogram with EF 50-55%, diastolic dysfunction Grade I, and moderate pulmonary hypertension. No current exacerbation. Will monitor. (8) DVT prophylaxis: Code(s): Z29.9 - Encounter for prophylactic measures, unspecified Status: Acute Assessment and Plan: Lovenox. Time Spent With Patient Time with patient: 15 - 25 minutes Subjective Date/time seen: 10/15/19 13:02 Interval history: Date of Service: 10/15/2019. Admitted with acute on chronic respiratory failure, altered mental status, atrial fibrillation with RVR. Sedated on ventilator. Review of Systems Review of Systems: ROS unobtainable: Yes unobtainable due to endotracheal tube Genitourinary: Comments: catheter in place Exam Const: General: no acute distress HENMT: Other: ET tube in place Neck: Neck: supple Resp: Auscultation: no wheezes and diminished lung sounds Cardio: Rate: regular rate Rhythm: regular rhythm GI: Inspection: non-distended GI Palp: Yes Soft to palpation Auscultation: normal bowel sounds Urinary Catheter: Urinary Catheter: patent and draining and urine clear Skin: General skin exam: normal color Neuro: Other: sedated Extrem: General: edema (trace lower extremities) Psych: Other: sedated Objective
[2019-10-15] MEDS: ENOXAPARIN 30 MG/0.3 ML SYRINGE SUB-Q (13:29)
[2019-10-15] MEDS: AMLODIPINE BESYLATE 5 MG TABLET 10 MG PO (13:29)
[2019-10-15] MEDS: LORAZEPAM INJ 2 MG/ML VIAL IV PUSH ×4 (17:39→23:50)
[2019-10-15 18:02] LABS: Glucose Point of Care 57 (65-105)
[2019-10-15 19:27] LABS: Glucose Point of Care 141 (65-105)
--- NOTE | 2019-10-15 22:01 | PC.NURSE ---
2100 dose of Rocephin not administered on time due to only having one IV and propofol currently running and the two medications are not compatible. Prachi FERNANDEZ is going to be coming to put in a central line but she called at 2029 and said she had some things to catch up on but then she would be here to insert the line after. Will hang the Rocephin as soon as the central line is placed.
--- NOTE | 2019-10-15 23:45 | WPDPROCEDUR ---
Procedures Central Line Placement: Right Femoral: Discussed w/ patient and/or surrogate, the non-emergent placement of a central venous catheter, including its clinical necessity/indication & associated potential risks & complications.: Yes The patient and/or surrogate understand(s) and acknowledge(s) the need to proceed with central venous catheter insertion as an important element of the patient's clinical management.: Yes Consent: Obtained from patients daughter by RN. Central Line Date: 10/15/19 Central Line Time: 23:45 Pre-procedural Time-Out was completed immediately before starting the procedure and confirmed: Patient Identification, Site, Procedure, Patient Position and the Availability of Requisite Equipment.: Yes Patient Position: supine Patient placed on monitor/pulse ox: Yes Provider Prep: mask, sterile gown, sterile gloves, Max. sterile barrier precautions, cap and hand hygiene Central line prep: Povidone-Iodine 1% Local anesthesia used: lidocaine 1% Amount of anesthesia used (ml): 5 Ultrasound used for placement: Yes Central line lumen inserted: triple Slovak: 7 Length (cm): 20 Post procedure: sutured in place, good blood return, all ports aspirated, flushed, capped, tegaderm, hemostatic disc and aseptic technique maintained throughout procedure Post procedure x-ray: other (N/A with femoral placement. ) Patient tolerated procedure: well Complications: none Additional comments: IV therapy RN reportedly placed 2, 22 gauge IVs earlier in the day, which have gone bad. Due to lack of adequate access, central line was inserted.
[2019-10-16] VITALS (20 sets, daily range): BP systolic 111–164; BP diastolic 64–120; PULSE 62–128; RESP 15–22; TEMP 36.4–37.1; O2SAT 96–100
[2019-10-16 00:52] LABS: Glucose Point of Care 115 (65-105)
[2019-10-16] MEDS: PROPOFOL IV EMULSION 100 ML 14.1 MG IV CONT (02:31)
[2019-10-16 03:50] LABS: Alveolar/Arterial O2 Gradient 156.2 mmHg; Base Excess ABG 4.8 mEq/l (+/-2.0); Carboxyhemoglobin 0.3 % THb (0-2.0); Fractional Inspired Oxygen 40 %; HCO3 ABG 27.4 mEq/l (22.0-26.0); Methemoglobin ABG 0.3 %THb (0-1.5); Oxygen Content ABG 16.8 %vol (16.0-22.0); Oxygen Saturation ABG 97.7 % (95.0-100.0); Oxyhemoglobin 96.4 % THb (90.0-100.0); PCO2 ABG 33.8 mmHg (35.0-45.0); PO2 ABG 90.1 mmHg (80.0-100.0); PO2 FiO2 Ratio Arterial Blood 2.25 %; Total Hemoglobin 12.3 g/dL (12.0-18.0)
[2019-10-16 03:51] LABS: Device VENTILATOR; Modified Allen's Test Pass; Site Drawn RIGHT RADIAL; pH ABG 7.526 (7.350-7.450)
[2019-10-16 03:52] LABS: Arterial Blood Gas PEEP 5 cmH2O; Arterial Blood Gas Tidal Volume 350 ml; Arterial Blood Gas Vent Mode CMV; Arterial Blood Gas Ventilator rate 15 /MIN
[2019-10-16 05:01] LABS: Hematocrit 38.1 % (37.0-47.0); Hemoglobin 12.1 g/dL (12.0-15.0); Mean Corpuscular HGB Conc 31.8 g/dl (32-36); Mean Corpuscular Volume 94.5 fl (80-100); Mean Platelet Volume 10.7 fl (7.4-10.4); Platelet Count Result 165 k/mm3 (150-375); Red Blood Count 4.03 M/mm3 (4.2-5.4); Red Cell Distribution Width 13.7 % (11.5-14.5)
[2019-10-16 05:14] LABS: Glucose Point of Care 155 (65-105)
[2019-10-16 05:17] LABS: Blood Urea Nitrogen 33 mg/dL (7-17); Carbon Dioxide 28 mmol/L (22-30); Chloride 100 mmol/L (98-107); Estimated CRCL calculation 23 ml/min; Estimated Glomerular Filt Rate 40; Glucose 175 mg/dL (65-105); Magnesium 1.9 mg/dL (1.6-2.3); Phosphorus 3.3 mg/dL (2.5-4.5); Potassium 3.6 mmol/L (3.4-5.0); Sodium 132 mmol/L (137-145)
[2019-10-16] MEDS: LEVOTHYROXINE SODIUM INJ 100 MCG/5 ML VIAL 50 MCG IV PUSH (06:03)
[2019-10-16] MEDS: methylPREDNISolone SOD SUCC 40 MG VIAL IV PUSH ×3 (06:03→20:05)
[2019-10-16] MEDS: FAMOTIDINE 20 MG/2 ML VIAL IV PUSH ×2 (08:05→20:12)
[2019-10-16] MEDS: AMLODIPINE BESYLATE 5 MG TABLET 10 MG PO (08:05)
[2019-10-16] MEDS: ENOXAPARIN 30 MG/0.3 ML SYRINGE SUB-Q (08:05)
[2019-10-16] MEDS: PROPOFOL IV EMULSION 100 ML 7.1 MG IV CONT (09:15)
--- NOTE | 2019-10-16 12:08 | PCDIET ---
ICU Rounding Note: Patient is tolerating Vital 1.2 at 35mL/hr with residuals 0-10mL. Last recorded weight is 59.5kg which is increased, despite -I/O. Bowel Motility: +BM overnight. Labs Reviewed: Glu (155), BUN (33), Cr (1.3), Na (132), Ca (8.0) Meds Noted: Albuterol, Pepcid, Solu Medrol, Diprivan (7.1mL/hr providing 187kcal over 24 hour period), Rocephin, Novolog Additional Notes: No reported skin breakdown. Recommend continuing tube feeding at present rate at this time. Following daily in ICU rounds. Assessing/reassessing every Sunday/Sunday.
--- NOTE | 2019-10-16 12:40 | WPDINTPN ---
Progress Note: A&P Assessment and Plan (1) Acute and chronic respiratory failure with hypoxia: Code(s): J96.21 - Acute and chronic respiratory failure with hypoxia Status: Chronic Assessment and Plan: patient presented with altered mental status, hypercapnic respiratory failure requiring intubation. could be related to COPD exacerbation, pneumonia. Elevated right hemidiaphragm - Chest x-ray And ABGs reviewed, ventilator adjusted - Patient was intubated on 10/14/2019 - remains on CMV mode of ventilation, 5 of PEEP and 40% FiO2. - continue albuterol and Spiriva MDI sputum cultures - continue ceftriaxone and doxycycline - continue Solu-Medrol - (2) Hypertension: Qualifiers: Hypertension type: essential hypertension Qualified Code(s): I10 - Essential (primary) hypertension Code(s): I10 - Essential (primary) hypertension Status: Acute Assessment and Plan: patient normally hypertensive, will maintain blood pressure is 160-180 mmHg - will start home amlodipine - hydralazine IV p.r.n. for systolic greater than 180 mmHg (3) Non-small cell lung cancer: Qualifiers: Laterality: unspecified laterality Qualified Code(s): C34.90 - Malignant neoplasm of unspecified part of unspecified bronchus or lung Code(s): C34.90 - Malignant neoplasm of unspecified part of unspecified bronchus or lung Status: Acute Assessment and Plan: status post radiation with remission for 3 years, now recurrent stage full non-small cell lung cancer - Patient follows an oncologist at [facility] [place] [facility] [place] [facility]. - Was supposed to start chemotherapy after getting Port-A-Cath placed (4) Diastolic congestive heart failure: Qualifiers: Heart failure chronicity: chronic Qualified Code(s): I50.32 - Chronic diastolic (congestive) heart failure Code(s): I50.30 - Unspecified diastolic (congestive) heart failure Status: Acute Assessment and Plan: patient had an echocardiogram in November 2018 which showed EF of 65-70%, diastolic dysfunction and mild pulmonary hypertension - echocardiogram on 10/15/2019: LV systolic function is mildly reduced, EF 50-55% grade 1 diastolic dysfunction mild to moderate aortic valve regurg, mild to moderate mitral valve regurg, moderate pulmonary hypertension with RVSP of 47 mmHg (5) Altered mental status: Qualifiers: Altered mental status type: delirium Qualified Code(s): R41.0 - Disorientation, unspecified Code(s): R41.82 - Altered mental status, unspecified Status: Acute Assessment and Plan: patient initially presented with altered mental status, CT scan of the head in the ED did not show any acute intracranial abnormalities. Patient was given Ativan in the ED which resulted increased CO2 retention hypercapnic respiratory failure requiring intubation. Patient also has a history of dysphagia and vocal cord dysfunction and has a high risk for aspiration. (6) Atrial fibrillation with rapid ventricular response: Code(s): I48.91 - Unspecified atrial fibrillation Status: Acute Assessment and Plan: CURRENTLY IN SINUS RHYTHM: - on admission patient was in AFib RVR, placed on Cardizem infusion after a Cardizem bolus in the ED - . Patient converted to sinus rhythm and Cardizem infusion was stopped. (7) Elevated troponin: Code(s): R79.89 - Other specified abnormal findings of blood chemistry Status: Acute Assessment and Plan: Patient with elevated troponin likely related to AFib RVR, COPD exacerbation, acute respiratory failure - troponins have plateaued, repeat troponin trended down (8) Chronic kidney disease, stage 3: Code(s): N18.3 - Chronic kidney disease, stage 3 (moderate) Status: Acute Assessment and Plan: patient with chronic kidney disease stage 3 - urine output has been adequate - continue monitor urin
[2019-10-16 12:59] LABS: Glucose Point of Care 125 (65-105)
--- NOTE | 2019-10-16 13:26 | PM.IMPN ---
Progress Note: A&P Assessment and Plan (1) Acute and chronic respiratory failure with hypoxia: Code(s): J96.21 - Acute and chronic respiratory failure with hypoxia Status: Chronic Assessment and Plan: Remains sedated on ventilator with management per photographic process attendant. Will continue IV steroids and Spiriva. Chest xray from today with airspace opacities in right mid and lower lung zones and left lower lung zones with worsening on the left, consistent with atelectasis versus pneumonia. Continue IV doxycycline and ceftriaxone to cover empirically for infection. Blood cultures remain negative to date. Will continue to monitor. (2) Altered mental status: Qualifiers: Altered mental status type: delirium Qualified Code(s): R41.0 - Disorientation, unspecified Code(s): R41.82 - Altered mental status, unspecified Status: Acute Assessment and Plan: May have been result of Ativan administration in ER. Now sedated on ventilator. Will need to reassess once off sedation. (3) Atrial fibrillation with rapid ventricular response: Code(s): I48.91 - Unspecified atrial fibrillation Status: Acute Assessment and Plan: Started on IV diltiazem in ER but discontinued with return to sinus rhythm. Telemetry reviewed on 10/16/2019 with patient remaining in sinus rhythm. Will continue to monitor. (4) Hypertension: Qualifiers: Hypertension type: essential hypertension Qualified Code(s): I10 - Essential (primary) hypertension Code(s): I10 - Essential (primary) hypertension Status: Acute Assessment and Plan: Blood pressure reviewed on 10/16/2019 with continued elevated readings. Remains on amlodipine. IV hydralazine available as needed. Will continue to monitor and adjust treatment as needed. IV diltiazem restarted this afternoon due to elevated blood pressure. Continue to monitor. (5) Non-small cell lung cancer: Qualifiers: Laterality: unspecified laterality Qualified Code(s): C34.90 - Malignant neoplasm of unspecified part of unspecified bronchus or lung Code(s): C34.90 - Malignant neoplasm of unspecified part of unspecified bronchus or lung Status: Acute Assessment and Plan: Known Stage IV disease. Was to have port placed and start chemotherapy. Will need to reassess after discharge. (6) Chronic kidney disease, stage 3: Code(s): N18.3 - Chronic kidney disease, stage 3 (moderate) Status: Acute Assessment and Plan: Creatinine improved to 1.30 today. Will continue to monitor. (7) Diastolic congestive heart failure: Qualifiers: Heart failure chronicity: chronic Qualified Code(s): I50.32 - Chronic diastolic (congestive) heart failure Code(s): I50.30 - Unspecified diastolic (congestive) heart failure Status: Acute Assessment and Plan: Echocardiogram in November 2018 with EF 65-70%, diastolic dysfunction and mild pulmonary hypertension. Current echocardiogram with EF 50-55%, diastolic dysfunction Grade I, and moderate pulmonary hypertension. Stable without current exacerbation. Will continue to monitor. (8) DVT prophylaxis: Code(s): Z29.9 - Encounter for prophylactic measures, unspecified Status: Acute Assessment and Plan: Lovenox. Time Spent With Patient Time with patient: 15 - 25 minutes Subjective Date/time seen: 10/16/19 13:26 Interval history: Date of Service: 10/16/2019. Admitted with acute on chronic respiratory failure, altered mental status, atrial fibrillation with RVR. Remains sedated on ventilator. Review of Systems Review of Systems: ROS unobtainable: Yes unobtainable due to endotracheal tube Exam Const: General: no acute distress HENMT: Other: ET tube in place Neck: Neck: supple Resp: Auscultation: no wheezes and diminished lung sounds Cardio: Rate: regular rate Rhythm: regular rhythm GI: Inspection: non-diste
--- NOTE | 2019-10-16 14:21 | ECG_ITS ---
Measurements Intervals [place] Rate: 114 P: [place]: 0 QRS: 74 QRSD: 149 T: 33 QT: 386 QTc: 532 Interpretive Statements ATRIAL FIBRILLATION WITH RAPID VENTRICULAR RESPONSE RIGHT BUNDLE BRANCH BLOCK BASELINE ARTIFACT- I, II, AVR, AVL, AVF ABNORMAL ECG Electronically Signed On 10-16-2019 16:49:18 CDT by Dawson Zamora D.O.
[2019-10-16 18:29] LABS: Glucose Point of Care 144 (65-105)
[2019-10-16] MEDS: PROPOFOL IV EMULSION 100 ML 5.6 MG IV CONT (20:03)
[2019-10-17] VITALS (22 sets, daily range): BP systolic 112–185; BP diastolic 52–94; PULSE 63–114; RESP 15–29; TEMP 36.3–36.8; O2SAT 92–100
[2019-10-17 00:08] LABS: Glucose Point of Care 188 (65-105)
[2019-10-17 04:30] LABS: Carboxyhemoglobin 0.3 % THb (0-2.0); Fractional Inspired Oxygen 40 %; HCO3 ABG 26.7 mEq/l (22.0-26.0); Methemoglobin ABG 0.3 %THb (0-1.5); Oxygen Content ABG 17.4 %vol (16.0-22.0); Oxygen Saturation ABG 96.4 % (95.0-100.0); PCO2 ABG 33.8 mmHg (35.0-45.0); PO2 ABG 75.3 mmHg (80.0-100.0); PO2 FiO2 Ratio Arterial Blood 1.88 %; Reduced Hemoglobin 4.4 %THb (0-5.0)
[2019-10-17 04:31] LABS: Device VENTILATOR; Modified Allen's Test Pass; Site Drawn LEFT RADIAL; pH ABG 7.515 (7.350-7.450)
[2019-10-17 04:32] LABS: Arterial Blood Gas Ventilator rate 15 /MIN
[2019-10-17 04:33] LABS: Arterial Blood Gas PEEP 5 cmH2O; Arterial Blood Gas Tidal Volume 350 ml; Arterial Blood Gas Vent Mode CMV
[2019-10-17 04:57] LABS: Hematocrit 37.8 % (37.0-47.0); Hemoglobin 12.6 g/dL (12.0-15.0); Mean Corpuscular HGB Conc 33.3 g/dl (32-36); Mean Corpuscular Hemoglobin 30.7 pg (26-34); Mean Platelet Volume 10.5 fl (7.4-10.4); Platelet Count Result 233 k/mm3 (150-375); Red Blood Count 4.11 M/mm3 (4.2-5.4); Red Cell Distribution Width 14.1 % (11.5-14.5); White Blood Count 18.9 K/mm3 (4.5-10.0)
[2019-10-17 05:12] LABS: Blood Urea Nitrogen 53 mg/dL (7-17); Calcium 8.1 mg/dL (8.4-10.2); Carbon Dioxide 24 mmol/L (22-30); Chloride 97 mmol/L (98-107); Estimated CRCL calculation 17 ml/min; Estimated Glomerular Filt Rate 26; Glucose 172 mg/dL (65-105); Phosphorus 3.9 mg/dL (2.5-4.5); Potassium 3.5 mmol/L (3.4-5.0); Sodium 132 mmol/L (137-145)
[2019-10-17] MEDS: methylPREDNISolone SOD SUCC 40 MG VIAL IV PUSH ×3 (05:43→22:00)
[2019-10-17] MEDS: LEVOTHYROXINE SODIUM INJ 100 MCG/5 ML VIAL 50 MCG IV PUSH (05:44)
[2019-10-17] MEDS: PROPOFOL IV EMULSION 100 ML 5.6 MG IV CONT (07:46)
[2019-10-17] MEDS: LACTATED RINGERS 1,000 ML 999 ML IV CONT (07:51)
[2019-10-17] MEDS: AMLODIPINE BESYLATE 5 MG TABLET 10 MG PO (08:05)
[2019-10-17] MEDS: FAMOTIDINE 20 MG/2 ML VIAL IV PUSH ×2 (08:06→22:00)
[2019-10-17] MEDS: ENOXAPARIN 30 MG/0.3 ML SYRINGE SUB-Q (08:06)
--- NOTE | 2019-10-17 11:52 | PCDIET ---
Nutrition Follow-Up Complete: Nutrition Diagnosis: Inadequate oral intake related to mechanical ventilation as evidenced by NPO diet. Nutrition Goal: Patient to meet estimated nutritional needs. Goal met. Spoke with RN via phone due to COVID-19 precautions. Patient tolerating tube feeding (Vital 1.2 at 35mL/hr goal rate) well, per RN. Tube feedings now to be held for breathing trial. Last recorded weight is 63.1 kg which is increased. +I/O. Bowel Motility: No documented bowel movements. Labs Reviewed: Glu (155), BUN (33), Cr (1.3), Ca (8.0), Na (132) Meds Noted: Albuterol, Novolog, Rocephin, Solu Medrol, Pepcid, Propofol (5.6mL/hr provides 148kcal over 24 hour period) Additional Notes: No reported skin breakdown. Recommend resuming Vital 1.2 at 35mL/hr if unable to extubate. If medically appropriate, would consider medication(s) to promote bowel movement. Nutrition Monitoring and Evaluation: Will follow up every Sunday and Sunday. Follow daily in ICU rounds.
[2019-10-17 11:59] LABS: Glucose Point of Care 153 (65-105)
--- NOTE | 2019-10-17 12:00 | PM.IMPN ---
Progress Note: A&P Assessment and Plan (1) Acute and chronic respiratory failure with hypoxia: Code(s): J96.21 - Acute and chronic respiratory failure with hypoxia Status: Chronic Assessment and Plan: Remains sedated on ventilator with management per steel die engraver. Chest xray from today with official reading of worsened airspace opacities at left lung base along with known masses related to lung cancer. Now on Precedex. Continue IV doxycycline ceftriaxone to cover empirically for infection. Remains on Spiriva and IV steroids. Blood cultures negative thus far. Will continue to monitor closely. (2) Atrial fibrillation with rapid ventricular response: Code(s): I48.91 - Unspecified atrial fibrillation Status: Acute Assessment and Plan: Started on IV diltiazem in ER but discontinued with return to sinus rhythm. Unfortunately, returned to [place] every 2 yesterday. IV diltiazem restarted yesterday. Telemetry reviewed on 10/17/2019 with atrial fibrillation with heart rate controlled. Will continue to monitor. (3) Hypertension: Qualifiers: Hypertension type: essential hypertension Qualified Code(s): I10 - Essential (primary) hypertension Code(s): I10 - Essential (primary) hypertension Status: Acute Assessment and Plan: Blood pressure reviewed on 10/17/2019 with acceptable control. Continue to monitor with IV diltiazem in place as well as amlodipine. IV hydralazine available as needed. (4) Altered mental status: Qualifiers: Altered mental status type: delirium Qualified Code(s): R41.0 - Disorientation, unspecified Code(s): R41.82 - Altered mental status, unspecified Status: Acute Assessment and Plan: May have been result of Ativan administration in ER. Now requiring Precedex as noted above. Will not be able to fully assess until off ventilator. (5) Non-small cell lung cancer: Qualifiers: Laterality: unspecified laterality Qualified Code(s): C34.90 - Malignant neoplasm of unspecified part of unspecified bronchus or lung Code(s): C34.90 - Malignant neoplasm of unspecified part of unspecified bronchus or lung Status: Acute Assessment and Plan: Known Stage IV disease. Was to have port placed and start chemotherapy. Will need to reassess after discharge. (6) Chronic kidney disease, stage 3: Code(s): N18.3 - Chronic kidney disease, stage 3 (moderate) Status: Acute Assessment and Plan: Creatinine back up to 1.90 today but stable. Will continue to monitor. (7) Diastolic congestive heart failure: Qualifiers: Heart failure chronicity: chronic Qualified Code(s): I50.32 - Chronic diastolic (congestive) heart failure Code(s): I50.30 - Unspecified diastolic (congestive) heart failure Status: Acute Assessment and Plan: Echocardiogram in November 2018 with EF 65-70%, diastolic dysfunction and mild pulmonary hypertension. Current echocardiogram with EF 50-55%, diastolic dysfunction Grade I, and moderate pulmonary hypertension. Remains stable without current exacerbation. Will continue to monitor. (8) DVT prophylaxis: Code(s): Z29.9 - Encounter for prophylactic measures, unspecified Status: Acute Assessment and Plan: Lovenox. Time Spent With Patient Time with patient: 15 - 25 minutes Subjective Date/time seen: 10/17/19 12:00 Interval history: Date of Service: 10/17/2019. Admitted with acute on chronic respiratory failure, altered mental status, atrial fibrillation with RVR. Remains sedated on ventilator. Review of Systems Review of Systems: ROS unobtainable: Yes unobtainable due to endotracheal tube Exam Const: General: no acute distress HENMT: Other: ET tube in place Neck: Neck: supple Resp: Auscultation: no wheezes and diminished lung sounds Cardio: Rate: regular rate Rhythm: regular rhythm GI: Inspection: no
--- NOTE | 2019-10-17 14:21 | PM.CNPUL ---
Assessment and Plan Assessment and plan (1) COPD with emphysema: Code(s): J43.9 - Emphysema, unspecified Status: Acute Assessment and Plan: Has baseline COPD, no smoking for years, on O2 at home 1 L/min, bronchodilator therapy. continue bronchodilators for COPD (2) Acute and chronic respiratory failure with hypoxia: Code(s): J96.21 - Acute and chronic respiratory failure with hypoxia Status: Chronic Assessment and Plan: Vent day #3, intubated October 14 CXR improved; Elevated Right diaphragm, improved pulmonary edema, same RUL adenocarcinoma and smaller second lung primary on the left side. (3) Non-small cell lung cancer: Qualifiers: Laterality: unspecified laterality Qualified Code(s): C34.90 - Malignant neoplasm of unspecified part of unspecified bronchus or lung Code(s): C34.90 - Malignant neoplasm of unspecified part of unspecified bronchus or lung Status: Acute Assessment and Plan: She is improving, has controlled heart rate, atrial fibrillation=. Right upper lobe adenocarcinoma, has plans to get a port and start chemotherapy soon, now interrupted with respiratory failure requiring intubation She is not able to follow commands, although she is acting somewhat purposeful. (4) Paralyzed hemidiaphragm: Code(s): J98.6 - Disorders of diaphragm Status: Acute History of Present Illness History of Present Illness Consult date: 10/18/19 Reason for consult: COPD and other (acute on chronic respiratory failure) Chief complaint: Altered mental status Narrative: NEW CONSULT: Laura Capps is a 79 yo female followed in our practice, has lung cancer, SLE, mild emphysema, CKD. She has a RUL adenocarcinoma. Several months ago was found to have a new lung cancer on the left lung. She became more short of breath on October 13, came to the ED, was able to speak in complete sentences initially. She worsened, had atrial fib with RVR which appeared to exacerbate CHF, had elevated BNP 9620, elevated lactic acid, low saturation. At home, she in on 1 L/min; and on the day of arrival saturation was in the 78% range on higher O2. She was intubated on October 14, and had a right femoral TLC placed. She was treated with cardizem drip for rapid atrial fibrillation, antibiotics for pneumonia including ceftriaxone and azithromycin, with infiltrates in the bases. She has an elevated right diaphragm, old finding. Secretions have been moderate and yellow. since admission, she has improved, saturation is 99% on 30%, now in ASV, waiting for her to wake up from residual sedation. Review of Systems Review of Systems: ROS unobtainable: Yes unobtainable due to endotracheal tube PMFSH Past Medical History Medical History (Updated 10/17/19 @ 15:29 by Mitra Callahan MD) Anxiety Chronic anemia Upper and lower endoscopies per Dr. Robertson in December 2018 showed proximal esophageal ulcer associated with radiation therapy and sigmoid diverticulosis as well as internal hemorrhoids, respectively. Chronic kidney disease Stage 3 to 4. Baseline creatinine appears to run between 1.3 and 1.90. Chronic pain syndrome On long-term opioid therapy. Chronic respiratory failure COPD with emphysema Degenerative disc disease With chronic lumbago and history of vertebral compression fractures status post vertebroplasty. Diastolic congestive heart failure Echocardiogram November 2018 demonstrating mild concentric left ventricular hypertrophy with sigmoid hypertrophy of the septum, diastolic dysfunction, increased left heart filling pressure, EF 65-70%, mild pulmonary hypertension with RVSP of 43 and atrial fibrillation Esophageal ulcer Patient has had ulcers since receiving radiation for her lung cancer, which are chronic. Fatty liver Former smoker GERD (gastroesophageal reflux disease) Hyperparathyroidism Status post parathyroidectomy. 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
--- NOTE | 2019-10-17 15:14 | WPDINTPN ---
Progress Note: A&P Assessment and Plan (1) Acute and chronic respiratory failure with hypoxia: Code(s): J96.21 - Acute and chronic respiratory failure with hypoxia Status: Chronic Assessment and Plan: patient presented with altered mental status, hypercapnic respiratory failure requiring intubation. could be related to COPD exacerbation, pneumonia. Elevated right hemidiaphragm - Chest x-ray And ABGs reviewed, ventilator adjusted - Patient was intubated on 10/14/2019 - remains on CMV mode of ventilation, 5 of PEEP and 40% FiO2. - continue albuterol and Spiriva MDI sputum cultures - continue ceftriaxone and doxycycline - continue Solu-Medrol - Will discontinue propofol and started patient on Precedex. Will try the wake her up and place her on a spontaneous breathing trial and evaluate for extubation. Holding tube feeds (2) Hypertension: Qualifiers: Hypertension type: essential hypertension Qualified Code(s): I10 - Essential (primary) hypertension Code(s): I10 - Essential (primary) hypertension Status: Acute Assessment and Plan: patient normally hypertensive, will maintain blood pressure is 160-180 mmHg - will start home amlodipine - hydralazine IV p.r.n. for systolic greater than 180 mmHg (3) Non-small cell lung cancer: Qualifiers: Laterality: unspecified laterality Qualified Code(s): C34.90 - Malignant neoplasm of unspecified part of unspecified bronchus or lung Code(s): C34.90 - Malignant neoplasm of unspecified part of unspecified bronchus or lung Status: Acute Assessment and Plan: status post radiation with remission for 3 years, now recurrent stage full non-small cell lung cancer - Patient follows an oncologist at [facility]. - Was supposed to start chemotherapy after getting Port-A-Cath placed - APPRECIATE PULMONOLOGY EVALUATION AND RECOMMENDATIONS (4) Diastolic congestive heart failure: Qualifiers: Heart failure chronicity: chronic Qualified Code(s): I50.32 - Chronic diastolic (congestive) heart failure Code(s): I50.30 - Unspecified diastolic (congestive) heart failure Status: Acute Assessment and Plan: patient had an echocardiogram in November 2018 which showed EF of 65-70%, diastolic dysfunction and mild pulmonary hypertension - echocardiogram on 10/15/2019: LV systolic function is mildly reduced, EF 50-55% grade 1 diastolic dysfunction mild to moderate aortic valve regurg, mild to moderate mitral valve regurg, moderate pulmonary hypertension with RVSP of 47 mmHg (5) Altered mental status: Qualifiers: Altered mental status type: delirium Qualified Code(s): R41.0 - Disorientation, unspecified Code(s): R41.82 - Altered mental status, unspecified Status: Acute Assessment and Plan: patient initially presented with altered mental status, CT scan of the head in the ED did not show any acute intracranial abnormalities. Patient was given Ativan in the ED which resulted increased CO2 retention hypercapnic respiratory failure requiring intubation. Patient also has a history of dysphagia and vocal cord dysfunction and has a high risk for aspiration. (6) Atrial fibrillation with rapid ventricular response: Code(s): I48.91 - Unspecified atrial fibrillation Status: Acute Assessment and Plan: patient went into AFib RVR overnight requiring Cardizem infusion. Continues to be in AFib but rate control, Cardizem has been discontinued (7) Elevated troponin: Code(s): R79.89 - Other specified abnormal findings of blood chemistry Status: Acute Assessment and Plan: Patient with elevated troponin likely related to AFib RVR, COPD exacerbation, acute respiratory failure - troponins have plateaued, repeat troponin trended down (8) Chronic kidney disease, stage 3: Code(s): N18.3 - Chronic kidney disease
--- NOTE | 2019-10-17 15:18 | PCRCNOTE ---
Pt placed on wean trial 04/12
[2019-10-17] MEDS: LORAZEPAM INJ 2 MG/ML VIAL IV PUSH (17:34)
[2019-10-17 18:06] LABS: Glucose Point of Care 136 (65-105)
[2019-10-18] VITALS (19 sets, daily range): BP systolic 111–156; BP diastolic 63–134; PULSE 61–126; RESP 14–26; TEMP 36.2–36.9; O2SAT 93–100
[2019-10-18 00:07] LABS: Glucose Point of Care 201 (65-105)
[2019-10-18 05:07] LABS: Hematocrit 35.5 % (37.0-47.0); Hemoglobin 11.7 g/dL (12.0-15.0); Mean Corpuscular Hemoglobin 30.8 pg (26-34); Mean Corpuscular Volume 93.4 fl (80-100); Mean Platelet Volume 10.6 fl (7.4-10.4); Platelet Count Result 191 k/mm3 (150-375); Red Cell Distribution Width 14.1 % (11.5-14.5); White Blood Count 15.1 K/mm3 (4.5-10.0)
[2019-10-18] MEDS: LEVOTHYROXINE SODIUM INJ 100 MCG/5 ML VIAL 50 MCG IV PUSH (06:00)
[2019-10-18] MEDS: methylPREDNISolone SOD SUCC 40 MG VIAL IV PUSH ×3 (06:00→21:01)
[2019-10-18 06:08] LABS: Glucose Point of Care 151 (65-105)
[2019-10-18] MEDS: FAMOTIDINE 20 MG/2 ML VIAL IV PUSH ×2 (08:06→21:01)
[2019-10-18] MEDS: ENOXAPARIN 30 MG/0.3 ML SYRINGE SUB-Q (08:06)
[2019-10-18] MEDS: AMLODIPINE BESYLATE 5 MG TABLET 10 MG PO (08:07)
[2019-10-18 08:43] LABS: Blood Urea Nitrogen 69 mg/dL (7-17); Calcium 7.5 mg/dL (8.4-10.2); Carbon Dioxide 28 mmol/L (22-30); Chloride 95 mmol/L (98-107); Estimated CRCL calculation 15 ml/min; Estimated Glomerular Filt Rate 22; Glucose 147 mg/dL (65-105); Phosphorus 4.6 mg/dL (2.5-4.5); Potassium 3.6 mmol/L (3.4-5.0); Sodium 129 mmol/L (137-145)
[2019-10-18 11:47] LABS: Glucose Point of Care 160 (65-105)
[2019-10-18 13:25] LABS: Base Excess ABG 1.3 mEq/l (+/-2.0); Carboxyhemoglobin 0.3 % THb (0-2.0); Fractional Inspired Oxygen 35 %; HCO3 ABG 25.1 mEq/l (22.0-26.0); Methemoglobin ABG 0.3 %THb (0-1.5); Oxygen Content ABG 17.2 %vol (16.0-22.0); Oxygen Saturation ABG 96.5 % (95.0-100.0); Oxyhemoglobin 95.3 % THb (90.0-100.0); PCO2 ABG 36.9 mmHg (35.0-45.0); PO2 ABG 81.7 mmHg (80.0-100.0); PO2 FiO2 Ratio Arterial Blood 2.33 %; Reduced Hemoglobin 4.1 %THb (0-5.0); Total Hemoglobin 12.8 g/dL (12.0-18.0)
[2019-10-18 13:26] LABS: Device VENTILATOR; Modified Allen's Test Pass; Site Drawn RIGHT RADIAL
[2019-10-18 13:27] LABS: Arterial Blood Gas Minute Volume 0 LPM; Arterial Blood Gas PEEP 5 cmH2O; Arterial Blood Gas Pressure Support 8 cmH2O; Arterial Blood Gas Tidal Volume 0 ml; Arterial Blood Gas Vent Mode SPONTANEOUS; Arterial Blood Gas Ventilator rate 0 /MIN; Peak Inspiratory Pressure 0 cmH2O
--- NOTE | 2019-10-18 13:38 | PM.IMPN ---
Progress Note: A&P Assessment and Plan (1) Acute and chronic respiratory failure with hypoxia: Code(s): J96.21 - Acute and chronic respiratory failure with hypoxia Status: Chronic Assessment and Plan: Remains sedated on ventilator with management per charge nurse. Chest xray from today with improvement in airspace opacities. Discussed with charge nurse. Patient on breathing trial at time of my exam. Follow-up ABGs noted and good. Patient able to extubate after my exam. Weaned off Precedex this afternoon. Continue IV doxycycline ceftriaxone to cover empirically for infection. Continue Spiriva and IV steroids. Blood cultures negative thus far. Will continue to monitor closely. Appreciate help also from pulmonology. (2) Atrial fibrillation with rapid ventricular response: Code(s): I48.91 - Unspecified atrial fibrillation Status: Acute Assessment and Plan: Started on IV diltiazem in ER but discontinued with return to sinus rhythm. Unfortunately, returned to atrial fibrillation with IV diltiazem restarted on 10/16/2019. Telemetry reviewed on 10/18/2019 with patient remaining in atrial fibrillation but heart rate controlled. Continue IV diltiazem. Will continue to monitor. (3) Hypertension: Qualifiers: Hypertension type: essential hypertension Qualified Code(s): I10 - Essential (primary) hypertension Code(s): I10 - Essential (primary) hypertension Status: Acute Assessment and Plan: Blood pressure reviewed on 10/18/2019 with good control. Continue to monitor with IV diltiazem in place as well as amlodipine. IV hydralazine available as needed. (4) Altered mental status: Qualifiers: Altered mental status type: delirium Qualified Code(s): R41.0 - Disorientation, unspecified Code(s): R41.82 - Altered mental status, unspecified Status: Acute Assessment and Plan: May have been result of Ativan administration in ER. Now off Precedex as noted above. Will reassess now that she is on ventilator. (5) Non-small cell lung cancer: Qualifiers: Laterality: unspecified laterality Qualified Code(s): C34.90 - Malignant neoplasm of unspecified part of unspecified bronchus or lung Code(s): C34.90 - Malignant neoplasm of unspecified part of unspecified bronchus or lung Status: Acute Assessment and Plan: Known Stage IV disease. Was to have port placed and start chemotherapy. Will need to reassess after discharge. (6) Chronic kidney disease, stage 3: Code(s): N18.3 - Chronic kidney disease, stage 3 (moderate) Status: Acute Assessment and Plan: Creatinine increased to 2.20 today. Will continue to monitor. (7) Diastolic congestive heart failure: Qualifiers: Heart failure chronicity: chronic Qualified Code(s): I50.32 - Chronic diastolic (congestive) heart failure Code(s): I50.30 - Unspecified diastolic (congestive) heart failure Status: Acute Assessment and Plan: Echocardiogram in November 2018 with EF 65-70%, diastolic dysfunction and mild pulmonary hypertension. Current echocardiogram with EF 50-55%, diastolic dysfunction Grade I, and moderate pulmonary hypertension. Stable without current exacerbation. Will continue to monitor. (8) DVT prophylaxis: Code(s): Z29.9 - Encounter for prophylactic measures, unspecified Status: Acute Assessment and Plan: Lovenox. Time Spent With Patient Time with patient: 15 - 25 minutes Subjective Date/time seen: 10/18/19 13:38 Interval history: Date of Service: 10/18/2019. Admitted with acute on chronic respiratory failure, altered mental status, atrial fibrillation with RVR. Remains sedated on ventilator but does open her eyes and turn to me when I speak to her. Unable to answer questions. Review of Systems Review of Systems: ROS unobtainable: Yes unobtainable due to endotracheal tube Genitouri
--- NOTE | 2019-10-18 13:49 | WPDINTPN ---
Progress Note: A&P Assessment and Plan (1) Acute and chronic respiratory failure with hypoxia: Code(s): J96.21 - Acute and chronic respiratory failure with hypoxia Status: Chronic Assessment and Plan: patient presented with altered mental status, hypercapnic respiratory failure requiring intubation. could be related to COPD exacerbation, pneumonia. Elevated right hemidiaphragm - Chest x-ray And ABGs reviewed, ventilator adjusted - Patient was intubated on 10/14/2019 - remains on CMV mode of ventilation, 5 of PEEP and 40% FiO2. - continue albuterol and Spiriva MDI sputum cultures - continue ceftriaxone and doxycycline - continue Solu-Medrol - patient started on Precedex, placed on spontaneous breathing trial And evaluate for extubation (2) Hypertension: Qualifiers: Hypertension type: essential hypertension Qualified Code(s): I10 - Essential (primary) hypertension Code(s): I10 - Essential (primary) hypertension Status: Acute Assessment and Plan: patient normally hypertensive, will maintain blood pressure is 160-180 mmHg - will start home amlodipine - hydralazine IV p.r.n. for systolic greater than 180 mmHg (3) Non-small cell lung cancer: Qualifiers: Laterality: unspecified laterality Qualified Code(s): C34.90 - Malignant neoplasm of unspecified part of unspecified bronchus or lung Code(s): C34.90 - Malignant neoplasm of unspecified part of unspecified bronchus or lung Status: Acute Assessment and Plan: status post radiation with remission for 3 years, now recurrent stage full non-small cell lung cancer - Patient follows an oncologist at [facility] at [facility]. - Was supposed to start chemotherapy after getting Port-A-Cath placed - APPRECIATE PULMONOLOGY EVALUATION AND RECOMMENDATIONS (4) Diastolic congestive heart failure: Qualifiers: Heart failure chronicity: chronic Qualified Code(s): I50.32 - Chronic diastolic (congestive) heart failure Code(s): I50.30 - Unspecified diastolic (congestive) heart failure Status: Acute Assessment and Plan: patient had an echocardiogram in November 2018 which showed EF of 65-70%, diastolic dysfunction and mild pulmonary hypertension - echocardiogram on 10/15/2019: LV systolic function is mildly reduced, EF 50-55% grade 1 diastolic dysfunction mild to moderate aortic valve regurg, mild to moderate mitral valve regurg, moderate pulmonary hypertension with RVSP of 47 mmHg (5) Altered mental status: Qualifiers: Altered mental status type: delirium Qualified Code(s): R41.0 - Disorientation, unspecified Code(s): R41.82 - Altered mental status, unspecified Status: Acute Assessment and Plan: patient initially presented with altered mental status, CT scan of the head in the ED did not show any acute intracranial abnormalities. Patient was given Ativan in the ED which resulted increased CO2 retention hypercapnic respiratory failure requiring intubation. Patient also has a history of dysphagia and vocal cord dysfunction and has a high risk for aspiration. (6) Atrial fibrillation with rapid ventricular response: Code(s): I48.91 - Unspecified atrial fibrillation Status: Acute Assessment and Plan: patient went into AFib RVR overnight requiring Cardizem infusion. Continues to be in AFib but rate control, Cardizem has been discontinued (7) Elevated troponin: Code(s): R79.89 - Other specified abnormal findings of blood chemistry Status: Acute Assessment and Plan: Patient with elevated troponin likely related to AFib RVR, COPD exacerbation, acute respiratory failure - troponins have plateaued, repeat troponin trended down (8) Chronic kidney disease, stage 3: Code(s): N18.3 - Chronic kidney disease, stage 3 (moderate) Status: Acute Assessment and Plan: patient wi
--- NOTE | 2019-10-18 17:30 | PM.PNPUL ---
Progress Note: A&P Assessment and Plan (1) COPD with emphysema: Code(s): J43.9 - Emphysema, unspecified Status: Acute Assessment and Plan: Has baseline COPD, no smoking for years, on O2 at home 1 L/min, bronchodilator therapy. continue bronchodilators for COPD Add Cornet valve to assist with clearance of secretions, NPPV support if breathing worsens. She looks ok now, heart rate is high, and controlling this will keep her from having acute d-CHF with pulmonary edema and recurrent respiratory failure. Spoke with family, and pt spoke with her family as well. They were updated; very pleased with all the Dr Sarath has done to get her this far. (2) Acute and chronic respiratory failure with hypoxia: Code(s): J96.21 - Acute and chronic respiratory failure with hypoxia Status: Chronic Assessment and Plan: Vent day #4, extrubated 14:00 today, doing well on 1-2 L/min. CXR improved; Elevated Right diaphragm, improved pulmonary edema, same RUL adenocarcinoma and smaller second lung primary on the left side. (3) Non-small cell lung cancer: Qualifiers: Laterality: unspecified laterality Qualified Code(s): C34.90 - Malignant neoplasm of unspecified part of unspecified bronchus or lung Code(s): C34.90 - Malignant neoplasm of unspecified part of unspecified bronchus or lung Status: Acute Assessment and Plan: She is improving, has controlled heart rate, atrial fibrillation=. Right upper lobe adenocarcinoma, has plans to get a port and start chemotherapy soon, now interrupted with respiratory failure requiring intubation She is not able to follow commands, although she is acting somewhat purposeful. 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 Subjective Date/time seen: 10/18/19 17:30 This 79 yo female is now extubated, on 2 L/min, intubated October 14, alert, cognition ins great. She is able to hold the phone and talk with her family. Asks what happened? . She is able to cough intensely, get secretions to the back of her oropharynx, seems to be able to managed these. She is on low flow O2, similar to what she uses at home, sat is 94-96%. Her rapid heart rate is being treated with diltiazem to avoid repeat episode of afib with RVR and pulmonary edema. Sputum 10/16 shows moderate WBC, few Gram (+) cocci, few yeast. Not particularly concerning. Review of Systems Review of Systems: All systems reviewed & are unremarkable except as noted in HPI and below (HPI. She is alert, asking what happened? to her daughter Blossom by phone) Exam Const: General: no acute distress Other: Mild increased in accessory muscle use, Eyes: General: appearance normal, both eyes and all related structures Neck: Neck: no JVD Resp: Effort & Inspection: normal respiratory effort Auscultation: diminished lung sounds on the right (base consistent with elevated right diaphraghm ) Cardio: Rate: tachycardic (heart rate varying, 120s-140s) Rhythm: abnormal rhythm (atrial fibrillation, rate is higher 120s) irregularly irregular GI: Auscultation: normal bowel sounds Urinary Catheter: Urinary Catheter: patent and draining Skin: General skin exam: ecchymosis (elliot over right dorsum of the hand and forearm. ) Psych: Other: alert, speaking softly after extubation. Objective Data Vital Signs Vital Signs: Vital Signs - 24 hr 10/17/19 18:00 10/17/19 18:11 10/17/19 19:30 Temperature Pulse Rate 79 105 H 97 Respiratory Rate 15 Blood Pressure 124/94 H Pulse Oximetry 94 95 95 10/17/19 20:00 10/17/19 22:00 10/17/19 23:00 Temperature 36.3 C L Pulse Rate 71 65 65 Respiratory Rate 15 15 Blood Pressure 126/74 120/67 Pulse Oximetry 98 99 99 10/18/19 00:00 10/18/19 02:00 10/18/19 02:08 Temperature 36.4 C L 36.8 C Pulse Rate 79 78 62 Respiratory Rate 14 25 H Blood Pressure 11
[2019-10-18 17:35] LABS: Glucose Point of Care 113 (65-105)
[2019-10-18] MEDS: LORAZEPAM INJ 2 MG/ML VIAL IV PUSH (20:59)
[2019-10-18] MEDS: HALOPERIDOL LACTATE 5 MG/ML VIAL 2 MG IM (21:57)
[2019-10-18] MEDS: FUROSEMIDE INJ 40 MG/4 ML VIAL 20 MG IV PUSH (21:58)
[2019-10-19] VITALS (17 sets, daily range): BP systolic 113–169; BP diastolic 74–137; PULSE 63–116; RESP 22–32; TEMP 36.6–37.2; O2SAT 91–99
[2019-10-19 00:01] LABS: Glucose Point of Care 169 (65-105)
[2019-10-19] MEDS: methylPREDNISolone SOD SUCC 40 MG VIAL IV PUSH ×2 (06:18→13:47)
[2019-10-19 06:19] LABS: Hematocrit 36.2 % (37.0-47.0); Hemoglobin 11.9 g/dL (12.0-15.0); Mean Corpuscular HGB Conc 32.9 g/dl (32-36); Mean Corpuscular Hemoglobin 30.7 pg (26-34); Mean Corpuscular Volume 93.3 fl (80-100); Mean Platelet Volume 10.6 fl (7.4-10.4); Platelet Count Result 233 k/mm3 (150-375); Red Blood Count 3.88 M/mm3 (4.2-5.4); White Blood Count 21.1 K/mm3 (4.5-10.0)
[2019-10-19 06:36] LABS: Blood Urea Nitrogen 83 mg/dL (7-17); Calcium 7.9 mg/dL (8.4-10.2); Carbon Dioxide 21 mmol/L (22-30); Chloride 93 mmol/L (98-107); Estimated CRCL calculation 11 ml/min; Estimated Glomerular Filt Rate 15; Glucose 144 mg/dL (65-105); Phosphorus 6.6 mg/dL (2.5-4.5); Potassium 4.7 mmol/L (3.4-5.0); Sodium 130 mmol/L (137-145)
[2019-10-19] MEDS: FUROSEMIDE INJ 40 MG/4 ML VIAL 20 MG IV PUSH ×2 (08:03→10:13)
[2019-10-19] MEDS: ENOXAPARIN 30 MG/0.3 ML SYRINGE SUB-Q (08:07)
[2019-10-19] MEDS: FAMOTIDINE 20 MG/2 ML VIAL IV PUSH (08:08)
[2019-10-19 08:46] LABS: Alveolar/Arterial O2 Gradient 256.1 mmHg; Base Excess ABG -4.7 mEq/l (+/-2.0); Carboxyhemoglobin 0.3 % THb (0-2.0); Device NON-INVASIVE VENT; Fractional Inspired Oxygen 50 %; Methemoglobin ABG 0.5 %THb (0-1.5); Modified Allen's Test Pass; Oxygen Content ABG 15.8 %vol (16.0-22.0); Oxygen Saturation ABG 93.2 % (95.0-100.0); Oxyhemoglobin 91.9 % THb (90.0-100.0); PCO2 ABG 31.3 mmHg (35.0-45.0); PO2 ABG 65.2 mmHg (80.0-100.0); Reduced Hemoglobin 7.3 %THb (0-5.0); Site Drawn RIGHT RADIAL; Total Hemoglobin 12.2 g/dL (12.0-18.0); pH ABG 7.402 (7.350-7.450)
[2019-10-19 08:47] LABS: Non-Invasive Expiratory Pressure 5 CMH2O; Non-Invasive Inspiratory Pressure 12 CMH2O; Non-Invasive Vent Rate 10 /MIN
--- NOTE | 2019-10-19 08:49 | PM.IMPN ---
Progress Note: A&P Assessment and Plan (1) Acute and chronic respiratory failure with hypoxia: Code(s): J96.21 - Acute and chronic respiratory failure with hypoxia Status: Chronic Assessment and Plan: Successfully extubated on 10/18/2019. Now on BiPAP. Management per cemetery warden. Continue IV steroids along Spiriva. Remains on IV doxycycline and ceftriaxone to cover for for infection. Also appreciate help from pulmonology. Blood cultures remain negative. Weaning IV steroids. Chest xray today with continued diffuse lung disease. (2) Acute on chronic kidney failure: Qualifiers: Acute renal failure type: unspecified Chronic kidney disease stage: stage 3 (moderate) Qualified Code(s): N17.9 - Acute kidney failure, unspecified; N18.3 - Chronic kidney disease, stage 3 (moderate) Code(s): N17.9 - Acute kidney failure, unspecified; N18.9 - Chronic kidney disease, unspecified Status: Acute Assessment and Plan: Nephrology consulted and appreciate input. Creatinine increased to 3.00 today. Renal ultrasound with no hydronephrosis. Will continue to monitor. (3) Atrial fibrillation with rapid ventricular response: Code(s): I48.91 - Unspecified atrial fibrillation Status: Acute Assessment and Plan: Started on IV diltiazem in ER but discontinued with return to sinus rhythm. Unfortunately, returned to atrial fibrillation with IV diltiazem restarted on 10/16/2019. Telemetry reviewed on 10/19/2019 with continued atrial fibrillation with heart rate controlled. Continue IV diltiazem. Will continue to monitor. (4) Hypertension: Qualifiers: Hypertension type: essential hypertension Qualified Code(s): I10 - Essential (primary) hypertension Code(s): I10 - Essential (primary) hypertension Status: Acute Assessment and Plan: Blood pressure reviewed on 10/19/2019 with variable control including some high readings. On IV diltiazem alone for now. Amlodipine discontinued. Will continue to monitor. IV hydralazine available as needed. (5) Diastolic congestive heart failure: Qualifiers: Heart failure chronicity: chronic Qualified Code(s): I50.32 - Chronic diastolic (congestive) heart failure Code(s): I50.30 - Unspecified diastolic (congestive) heart failure Status: Acute Assessment and Plan: Echocardiogram in November 2018 with EF 65-70%, diastolic dysfunction and mild pulmonary hypertension. Current echocardiogram with EF 50-55%, diastolic dysfunction Grade I, and moderate pulmonary hypertension. Did receive IV Lasix yesterday and today. Will continue to monitor. (6) Non-small cell lung cancer: Qualifiers: Laterality: unspecified laterality Qualified Code(s): C34.90 - Malignant neoplasm of unspecified part of unspecified bronchus or lung Code(s): C34.90 - Malignant neoplasm of unspecified part of unspecified bronchus or lung Status: Acute Assessment and Plan: Known Stage IV disease. Was to have port placed and start chemotherapy. Will need to reassess after discharge. (7) Altered mental status: Qualifiers: Altered mental status type: delirium Qualified Code(s): R41.0 - Disorientation, unspecified Code(s): R41.82 - Altered mental status, unspecified Status: Acute Assessment and Plan: May have been result of Ativan administration in ER. Off Precedex. Continue to monitor. (8) DVT prophylaxis: Code(s): Z29.9 - Encounter for prophylactic measures, unspecified Status: Acute Assessment and Plan: Lovenox. Time Spent With Patient Time with patient: 15 - 25 minutes Subjective Date/time seen: 10/19/19 08:49 Interval history: Date of Service: 10/19/2019. Admitted with acute on chronic respiratory failure, altered mental status, atrial fibrillation with RVR. Extubated yesterday afternoon but had some respiratory difficulty last night and
--- NOTE | 2019-10-19 09:48 | PM.CNNEP ---
Assessment and Plan Assessment and plan (1) Acute on chronic kidney failure: Code(s): N17.9 - Acute kidney failure, unspecified; N18.9 - Chronic kidney disease, unspecified Status: Acute Assessment and Plan: The patient has chronic kidney disease. This is most likely due to hypertension and vascular disease. Her chronic baseline is between 1.3 and 1.9. The patient has acute kidney injury. She has severe respiratory failure and has been sick for a few days. Her urine used to be prado but now is muddy brown. I suspect that this is acute tubular necrosis from her other acute medical illnesses. An ultrasound of the kidneys has been ordered to rule out obstruction. She has not received dye or other nephrotoxic agents. So I doubt if this is a medicine issue unless she has allergic interstitial nephritis. We can get a set of urine eosinophils and CBC with diff. I doubt if this is a vascular issue as both kidneys would have to have been involved. I do not think she is pre renal. She has signs of volume overload and her LV function is good. Will obtain a renal ultrasound, urine electrolytes and eosinophils. We will get a CPK. The patient has significant orthostatic hypotension. Will check a cortisol level. Discussed at length with Dr. Clemens (2) Atrial fibrillation with rapid ventricular response: Code(s): I48.91 - Unspecified atrial fibrillation Status: Acute Assessment and Plan: The patient has atrial fibrillation. Her heart rate is back down now, after having had tachycardia yesterday. She is on diltiazem for this. (3) Altered mental status: Qualifiers: Altered mental status type: delirium Qualified Code(s): R41.0 - Disorientation, unspecified Code(s): R41.82 - Altered mental status, unspecified Status: Acute Assessment and Plan: This has been going on since she was admitted. (4) Diastolic congestive heart failure: Qualifiers: Heart failure chronicity: chronic Qualified Code(s): I50.32 - Chronic diastolic (congestive) heart failure Code(s): I50.30 - Unspecified diastolic (congestive) heart failure Status: Acute Assessment and Plan: The patient had an echo this admission showing mildly decreased LV function, diastolic dysfunction, and moderate pulmonary hypertension. (5) Acute and chronic respiratory failure with hypoxia: Code(s): J96.21 - Acute and chronic respiratory failure with hypoxia Status: Chronic Assessment and Plan: The patient has multiple issues. She has COPD, bronchogenic carcinoma, and now has pulmonary edema. Her blood pressure is pretty good right now. She may need dialysis to keep from having to go back on to the ventilator. I talked with Dr. Clemens. He is going to be having discussions with the family today about aggressiveness of care. (6) Non-small cell lung cancer: Qualifiers: Laterality: unspecified laterality Qualified Code(s): C34.90 - Malignant neoplasm of unspecified part of unspecified bronchus or lung Code(s): C34.90 - Malignant neoplasm of unspecified part of unspecified bronchus or lung Status: Acute Assessment and Plan: The patient has lung cancer. He has yet to start her chemotherapy (7) Hypertension: Qualifiers: Hypertension type: essential hypertension Qualified Code(s): I10 - Essential (primary) hypertension Code(s): I10 - Essential (primary) hypertension Status: Acute Assessment and Plan: Blood pressure is well controlled. She is on amlodipine. We can stop this now that she is on diltiazem, so that when she switches to p.o. she would just stay on the latter medication. History of Present Illness Reason for Consult Consult date: 10/19/19 Chief Complaint Chief complaint: Altered mental status History of Present Illness Narrative: Laura is a very pleasant 79-year-old lady who has bronchogeni
--- NOTE | 2019-10-19 09:51 | WPDCNINT ---
Assessment and Plan Assessment and plan (1) Acute kidney injury superimposed on chronic kidney disease: Code(s): N17.9 - Acute kidney failure, unspecified; N18.9 - Chronic kidney disease, unspecified Status: Acute Assessment and Plan: MELBA on chronic kidney disease stage 3. likely due to ATN, A.fib. 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 Pt has been seeing a note taker at [place], who was talking about dialysis with her but she rhad refused as per her daughter and - Creatinine elevated, low urine output - Renal u/s with no hydronephrosis - Appreciate Nephrology evaluation and recommendation - continue to monitor (2) Atrial fibrillation with rapid ventricular response: Code(s): I48.91 - Unspecified atrial fibrillation Status: Acute Assessment and Plan: Patient went into AFib RVR overnight requiring Cardizem infusion. Now in A.fib , rate controlled - will continue Cardizem gtt - pulm edema, not responding to diuretic - On BiPAP. - Now MELBA, monitor renal function (3) Acute and chronic respiratory failure with hypoxia: Code(s): J96.21 - Acute and chronic respiratory failure with hypoxia Status: Chronic Assessment and Plan: patient presented with altered mental status, hypercapnic respiratory failure requiring intubation. could be related to COPD exacerbation, pneumonia. Elevated right hemidiaphragm. Was intubated on 10/14/2019 - CXR an ABG reviewed - Pt EXTUBATED on 10/18/2019 - patient developed be edema this morning likely secondary to AFib RVR. Patient also has a history of diastolic dysfunction. Lasix was given much output. Patient placed on BiPAP and doing well. ABGs not reveal hypercapnia or hypoxia. Will continue BiPAP for now - continue albuterol and Spiriva MDI sputum cultures - continue ceftriaxone and doxycycline - Wean Solu-Medrol (4) Hypertension: Qualifiers: Hypertension type: essential hypertension Qualified Code(s): I10 - Essential (primary) hypertension Code(s): I10 - Essential (primary) hypertension Status: Acute Assessment and Plan: patient normally hypertensive, will maintain blood pressure is 160-180 mmHg - on cardizem gtt - hydralazine IV p.r.n. for systolic greater than 180 mmHg (5) Non-small cell lung cancer: Qualifiers: Laterality: unspecified laterality Qualified Code(s): C34.90 - Malignant neoplasm of unspecified part of unspecified bronchus or lung Code(s): C34.90 - Malignant neoplasm of unspecified part of unspecified bronchus or lung Status: Acute Assessment and Plan: status post radiation with remission for 3 years, now recurrent stage full non-small cell lung cancer - Patient follows an oncologist at [facility]. - Was supposed to start chemotherapy after getting Port-A-Cath placed - APPRECIATE PULMONOLOGY EVALUATION AND RECOMMENDATIONS (6) Diastolic congestive heart failure: Qualifiers: Heart failure chronicity: chronic Qualified Code(s): I50.32 - Chronic diastolic (congestive) heart failure Code(s): I50.30 - Unspecified diastolic (congestive) heart failure Status: Acute Assessment and Plan: patient had an echocardiogram in November 2018 which showed EF of 65-70%, diastolic dysfunction and mild pulmonary hypertension - echocardiogram on 10/15/2019: LV systolic function is mildly reduced, EF 50-55% grade 1 diastolic dysfunction mild to moderate aortic valve regurg, mild to moderate mitral valve regurg, moderate pulmonary hypertension with RVSP of 47 mmHg (7) Dietary counseling and surveillance: Code(s): Z71.3 - Dietary counseling and surveillance Status: Acute Assessment and Plan: currently of tube feeds as patient is extubated - on BiPAP, once she improves will have speech therapy to a swallow evaluation (8) DVT prophylaxis: Code(s): Z29.9 - Encounter for prophylactic
[2019-10-19 11:36] LABS: Creatine Kinase 42 U/L (30-135)
[2019-10-19 11:46] LABS: Glucose Point of Care 147 (65-105)
[2019-10-19 11:50] LABS: Creatinine Urine 22.6 mg/dL
[2019-10-19 11:52] LABS: Add Urine Microscopic? YES; Appearance Urine Cloudy (Clear); Bacteria Urine Trace /hpf; Bilirubin Urine Negative (Negative); Blood Urine 3+ (Negative); Color Urine Red (Yellow); Glucose Urine UA Negative (Negative); Hyaline Casts Urine 30-49 /lpf; Ketones Urine Negative (Negative); Leukocyte Esterase Ur 2+ LEU/UL (NEGATIVE); Mucus Urine Rare /lpf; Nitrate Urine Negative (Negative); Protein Urine 2+ mg/dL (Negative); RBC Urine >75 /hpf (0-2); Urobilinogen Urine Negative mg/dL (<2.0); WBC Urine >75 /hpf (0-3)
[2019-10-19 11:53] LABS: Sodium Urine Random 35 meq/L
[2019-10-19] MEDS: LEVOTHYROXINE SODIUM INJ 100 MCG/5 ML VIAL 50 MCG IV PUSH (12:18)
[2019-10-19 12:33] LABS: Total Protein Urine Random 247 mg/dL
--- NOTE | 2019-10-19 15:30 | PM.PNPUL ---
Progress Note: A&P Assessment and Plan (1) Acute and chronic respiratory failure with hypoxia: Code(s): J96.21 - Acute and chronic respiratory failure with hypoxia Status: Chronic Assessment and Plan: Extubated October 17 after vent day #4, worse to atiral fib with RVR, pulmonary edema, deteriorated, now on BiPAP for resp support. SHe drops her saturation quickly without NPPV. Normally at home is on 1 L/min. CXR worse today; Elevated Right diaphragm, pulmonary edema, same RUL adenocarcinoma and smaller second lung primary on the left side. Restart fentanyl patch for pain. (2) COPD with emphysema: Code(s): J43.9 - Emphysema, unspecified Status: Acute Assessment and Plan: Has baseline COPD, no smoking for years, on O2 at home 1 L/min, bronchodilator therapy. continue bronchodilators for COPD Add Cornet valve to assist with clearance of secretions, NPPV support if breathing worsens. She looks ok now, heart rate is high, and controlling this will keep her from having acute d-CHF with pulmonary edema and recurrent respiratory failure. Spoke with family, and pt spoke with her family as well. They were updated; discussing dialysis. (3) Non-small cell lung cancer: Qualifiers: Laterality: unspecified laterality Qualified Code(s): C34.90 - Malignant neoplasm of unspecified part of unspecified bronchus or lung Code(s): C34.90 - Malignant neoplasm of unspecified part of unspecified bronchus or lung Status: Acute Assessment and Plan: She is improving, has controlled heart rate, atrial fibrillation=. Right upper lobe adenocarcinoma, has plans to get a port and start chemotherapy soon, now interrupted with respiratory failure requiring intubation More alert. 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 Subjective Date/time seen: 10/19/19 15:30 She deteriorated yesterday after extubation, developed atrial fib with RVR, treated with a diltiazem drip; renal function worsened. Creatinine increased BUN 83, creat 3.0. from 69/2.2 on admission, BUN/ creat 33/1.9. WBC increased 21.1K. October 13 admitted, intubated October 14, extubated October 17. Heart rate increased, now managed with diltiazem drip. She required bipap to maintain saturation, otherwise dropped sat in under one minute. She is on 50%, 12/5 to maintain saturation of 94-96% Sputum 10/16 shows moderate WBC, few Gram (+) cocci, few yeast. Review of Systems Review of Systems: Narrative: She is complaining of generalized pain, was on a fentanyl patch before admission 12.5 mcg/hour. This was stopped while she was on sedative drips. Exam Const: General: in distress (moderate increase in respiratory effort) Other: Mild increased in accessory muscle use, Eyes: General: appearance normal, both eyes and all related structures Neck: Neck: no JVD Resp: Auscultation: crackles Cardio: Rate: tachycardic (heart rate varying, 120s-140s) Rhythm: abnormal rhythm (atrial fibrillation, rate is higher 120s) irregularly irregular GI: Auscultation: normal bowel sounds Urinary Catheter: Urinary Catheter: patent and draining (urine is darker overall, improved after Lasix 20 mg twice) Skin: General skin exam: ecchymosis (elliot over right dorsum of the hand and forearm. ) Neuro: Cognition (Neuro): normal cognition (overall good given her level of illness) Other: sedation changed, propofol to precedex, low dose. Extrem: Right upper extremity: normal to inspection (ecchymoses on dorsum of right hand and arm) Psych: Other: alert, speaking softly after extubation. Objective Data Vital Signs Vital Signs: Vital Signs - 24 hr 10/18/19 16:00 10/18/19 18:00 10/18/19 19:54 Temperature 36.7 C Pulse Rate 110 H 126 H Respiratory Rate 26 H 25 H Blood Pressure 132/86 156/97 H Pulse Oximetry 96 96 97 10/18/19 20:00 10/18/19
--- NOTE | 2019-10-19 18:22 | PC.NURSE ---
ICU 9 , Mr. Capps, called to advise that family would like to proceed with dialysis. Dr. Callahan present in ICU at the time of notification, she confirmed that she will notify Dr. Clemens via text message this evening.
[2019-10-19 18:24] LABS: Glucose Point of Care 129 (65-105)
[2019-10-20] VITALS (26 sets, daily range): BP systolic 124–159; BP diastolic 71–111; PULSE 67–116; RESP 18–31; TEMP 36.4–36.8; O2SAT 93–100
[2019-10-20] MEDS: methylPREDNISolone SOD SUCC 40 MG VIAL IV PUSH ×3 (00:04→23:35)
[2019-10-20 00:10] LABS: Glucose Point of Care 163 (65-105)
[2019-10-20 04:43] LABS: Basophils Percent Auto 0.2 % (0.2-1.2); Hematocrit 32.4 % (37.0-47.0); Hemoglobin 10.5 g/dL (12.0-15.0); Immature Granulocyte Absolute 0.06 K/mm3 (0.00-0.031); Immature Granulocyte Percent A 0.5 % (0-0.5); Lymphocytes Absolute Auto 0.11 K/mm3 (0.9-3.2); Lymphocytes Percent Auto 0.8 % (18.3-44.2); Mean Corpuscular HGB Conc 32.4 g/dl (32-36); Mean Corpuscular Hemoglobin 30.2 pg (26-34); Mean Corpuscular Volume 93.1 fl (80-100); Mean Platelet Volume 10.7 fl (7.4-10.4); Monocytes Absolute Auto 0.4 K/mm3 (0.1-0.6); Monocytes Percent Auto 2.7 % (2.6-8.5); Neutrophils Absolute Auto 12.5 K/mm3 (1.3-6.7); Neutrophils Percent Auto 95.8 % (45.5-73.1); Nucleated Red Blood Cells Perc 0.2 % (0.0-0.2); Platelet Count Result 142 k/mm3 (150-375); Red Blood Count 3.48 M/mm3 (4.2-5.4); Red Cell Distribution Width 13.8 % (11.5-14.5)
[2019-10-20 05:26] LABS: Albumin Level 3.1 g/dL (3.5-5.1); Blood Urea Nitrogen 101 mg/dL (7-17); Carbon Dioxide 25 mmol/L (22-30); Chloride 96 mmol/L (98-107); Estimated CRCL calculation 10 ml/min; Estimated Glomerular Filt Rate 13; Glucose 157 mg/dL (65-105); Magnesium 2.1 mg/dL (1.6-2.3); Phosphorus 6.8 mg/dL (2.5-4.5); Potassium 4.1 mmol/L (3.4-5.0); Sodium 131 mmol/L (137-145)
[2019-10-20 06:17] LABS: Glucose Point of Care 144 (65-105)
[2019-10-20] MEDS: PANTOPRAZOLE SODIUM IV 40 MG VIAL IV PUSH (07:51)
[2019-10-20 08:03] LABS: Fractional Inspired Oxygen 50 %; HCO3 ABG 21.7 mEq/l (22.0-26.0); Oxygen Content ABG 15.4 %vol (16.0-22.0); Oxygen Saturation ABG 93.2 % (95.0-100.0); Oxyhemoglobin 91.2 % THb (90.0-100.0); PCO2 ABG 33.5 mmHg (35.0-45.0); PO2 ABG 63.8 mmHg (80.0-100.0); PO2 FiO2 Ratio Arterial Blood 1.28 %; pH ABG 7.429 (7.350-7.450)
[2019-10-20 08:04] LABS: Device NON-INVASIVE VENT; Modified Allen's Test Pass; Site Drawn RIGHT RADIAL
[2019-10-20 08:05] LABS: Non-Invasive Expiratory Pressure 5 CMH2O; Non-Invasive Vent Rate 10 /MIN
[2019-10-20 08:13] LABS: Non-Invasive Inspiratory Pressure 12 CMH2O
--- NOTE | 2019-10-20 11:02 | PCDIET ---
ICU Rounding Note: Patient extubated and now on bipap. Plan for dialysis noted. Last recorded weight is 56.8kg which is down from last review, but increased from admission. Bowel Motility: No documented bowel movement. Labs Reviewed: Glu (157), BUN (101), Cr (3.3), PO4 (6.8), Na (131), Alb (3.1) Meds Noted: Albuterol, Novolog, Rocephin, Solu Medrol, Precedex, Protonix Additional Notes: No documented skin breakdown. Agree with NPO at this time. Following daily in ICU rounds. Assessing/reassessing every Sunday/Sunday.
[2019-10-20 11:08] LABS: Glucose Point of Care 157 (65-105)
--- NOTE | 2019-10-20 11:11 | WPDINTPN ---
Progress Note: A&P Assessment and Plan (1) Acute kidney injury superimposed on chronic kidney disease: Code(s): N17.9 - Acute kidney failure, unspecified; N18.9 - Chronic kidney disease, unspecified Status: Acute Assessment and Plan: MELBA on chronic kidney disease stage 3. likely due to ATN, A.fib. 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 Pt has been seeing a pi/senior research associate at [place], who was talking about dialysis with her but she had refused as per her daughter and - BUN and Creatinine elevated, - urine output has been adequate - Renal u/s with no hydronephrosis - Appreciate Nephrology evaluation and recommendation, will discuss regarding hemodialysis - continue to monitor (2) Atrial fibrillation with rapid ventricular response: Code(s): I48.91 - Unspecified atrial fibrillation Status: Acute Assessment and Plan: Patient went into AFib RVR overnight requiring Cardizem infusion. Now in A.fib , rate controlled - will continue Cardizem gtt - pulm edema, not responding to diuretic - On BiPAP. - Now MELBA, monitor renal function (3) Acute and chronic respiratory failure with hypoxia: Code(s): J96.21 - Acute and chronic respiratory failure with hypoxia Status: Chronic Assessment and Plan: patient presented with altered mental status, hypercapnic respiratory failure requiring intubation. could be related to COPD exacerbation, pneumonia. Elevated right hemidiaphragm. Was intubated on 10/14/2019 - CXR an ABG reviewed - Pt EXTUBATED on 10/18/2019 - patient developed be edema this morning likely secondary to AFib RVR. Patient also has a history of diastolic dysfunction. Lasix was given much output. Patient placed on BiPAP and doing well. ABGs not reveal hypercapnia or hypoxia. Will continue BiPAP for now - continue albuterol and Spiriva MDI sputum cultures - continue ceftriaxone and doxycycline - Wean Solu-Medrol (4) Hypertension: Qualifiers: Hypertension type: essential hypertension Qualified Code(s): I10 - Essential (primary) hypertension Code(s): I10 - Essential (primary) hypertension Status: Acute Assessment and Plan: patient normally hypertensive, will maintain blood pressure is 160-180 mmHg - on cardizem gtt - hydralazine IV p.r.n. for systolic greater than 180 mmHg (5) Non-small cell lung cancer: Qualifiers: Laterality: unspecified laterality Qualified Code(s): C34.90 - Malignant neoplasm of unspecified part of unspecified bronchus or lung Code(s): C34.90 - Malignant neoplasm of unspecified part of unspecified bronchus or lung Status: Acute Assessment and Plan: status post radiation with remission for 3 years, now recurrent stage full non-small cell lung cancer - Patient follows an oncologist at [facility] at [facility]. - Was supposed to start chemotherapy after getting Port-A-Cath placed - APPRECIATE PULMONOLOGY EVALUATION AND RECOMMENDATIONS (6) Diastolic congestive heart failure: Qualifiers: Heart failure chronicity: chronic Qualified Code(s): I50.32 - Chronic diastolic (congestive) heart failure Code(s): I50.30 - Unspecified diastolic (congestive) heart failure Status: Acute Assessment and Plan: patient had an echocardiogram in November 2018 which showed EF of 65-70%, diastolic dysfunction and mild pulmonary hypertension - echocardiogram on 10/15/2019: LV systolic function is mildly reduced, EF 50-55% grade 1 diastolic dysfunction mild to moderate aortic valve regurg, mild to moderate mitral valve regurg, moderate pulmonary hypertension with RVSP of 47 mmHg (7) Dietary counseling and surveillance: Code(s): Z71.3 - Dietary counseling and surveillance Status: Acute Assessment and Plan: currently of tube feeds as patient is extubated - on BiPAP, once she improves will have speech therapy to a swallow evaluation (8) DVT pro
--- NOTE | 2019-10-20 11:25 | PM.IMPN ---
Progress Note: A&P Assessment and Plan (1) Acute and chronic respiratory failure with hypoxia: Code(s): J96.21 - Acute and chronic respiratory failure with hypoxia Status: Chronic Assessment and Plan: Successfully extubated on 10/18/2019. On BiPAP this morning and transitioned to nasal cannula. Appreciate help from pulmonology and maintenance aide. Chest x-ray today reviewed with maintenance aide with some improvement. Plan for IV Lasix again today. Will continue IV steroids along with Spiriva. Remains on IV doxycycline and ceftriaxone to cover for for infection. Blood cultures remain negative. Requiring Precedex still at this point. Will continue to monitor. (2) Acute on chronic kidney failure: Qualifiers: Acute renal failure type: unspecified Chronic kidney disease stage: stage 3 (moderate) Qualified Code(s): N17.9 - Acute kidney failure, unspecified; N18.3 - Chronic kidney disease, stage 3 (moderate) Code(s): N17.9 - Acute kidney failure, unspecified; N18.9 - Chronic kidney disease, unspecified Status: Acute Assessment and Plan: Nephrology consulted and appreciate input. Creatinine continues to increase at 3.30 today. Renal ultrasound with no hydronephrosis. Per family, patient has previously declined hemodialysis. Family would like hemodialysis to get her home if needed but no need at the present time. Plan to continue diuretics for now. Will continue to monitor. (3) Atrial fibrillation with rapid ventricular response: Code(s): I48.91 - Unspecified atrial fibrillation Status: Acute Assessment and Plan: Started on IV diltiazem in ER but discontinued with return to sinus rhythm. Unfortunately, returned to atrial fibrillation with IV diltiazem restarted on 10/16/2019. Had required increase of diltiazem to 15 mg but has now weaned back to 5 mg per hour. Telemetry reviewed on 10/20/2019 with continued atrial fibrillation with heart rate controlled. Continue current IV diltiazem. Will continue to monitor. (4) Hypertension: Qualifiers: Hypertension type: essential hypertension Qualified Code(s): I10 - Essential (primary) hypertension Code(s): I10 - Essential (primary) hypertension Status: Acute Assessment and Plan: Blood pressure reviewed on 10/20/2019 with some elevated readings. Remains on IV diltiazem alone for now. Amlodipine previously discontinued. Will continue to monitor. IV hydralazine available as needed. (5) Diastolic congestive heart failure: Qualifiers: Heart failure chronicity: chronic Qualified Code(s): I50.32 - Chronic diastolic (congestive) heart failure Code(s): I50.30 - Unspecified diastolic (congestive) heart failure Status: Acute Assessment and Plan: Echocardiogram in November 2018 with EF 65-70%, diastolic dysfunction and mild pulmonary hypertension. Current echocardiogram with EF 50-55%, diastolic dysfunction Grade I, and moderate pulmonary hypertension. Received IV Lasix past 3 days. Will continue to monitor. (6) Non-small cell lung cancer: Qualifiers: Laterality: unspecified laterality Qualified Code(s): C34.90 - Malignant neoplasm of unspecified part of unspecified bronchus or lung Code(s): C34.90 - Malignant neoplasm of unspecified part of unspecified bronchus or lung Status: Acute Assessment and Plan: Known Stage IV disease. Was to have port placed and start chemotherapy. Will need to reassess after discharge. (7) Altered mental status: Qualifiers: Altered mental status type: delirium Qualified Code(s): R41.0 - Disorientation, unspecified Code(s): R41.82 - Altered mental status, unspecified Status: Acute Assessment and Plan: May have been result of Ativan administration in ER. Improved. Continue to monitor. (8) DVT prophylaxis: Code(s): Z29.9 - Encounter for prophylactic measures, unspecified
[2019-10-20] MEDS: FUROSEMIDE INJ 40 MG/4 ML VIAL IV PUSH (11:36)
--- NOTE | 2019-10-20 14:58 | P.PNNP_ITS ---
Progress Note: A&P Assessment and Plan (1) MELBA (acute kidney injury): Code(s): N17.9 - Acute kidney failure, unspecified Status: Acute Assessment and Plan: * likely due to ATN from acute medical issues: - urine electrolytes suggest pre-renal azotemia - significant proteinuria noted as well (~ 10 grams) - renal ultrasound with normal left kidney; unable to visualize right kidney - urine eosinophils pending - respiratory issues * elevated BUN and creatinine noted but making good UOP with diuretics * no need for renal replacement therapy at this time * continue diuretics (2) CKD (chronic kidney disease): Code(s): N18.9 - Chronic kidney disease, unspecified Status: Chronic Assessment and Plan: * baseline creatinine appears to run ~ 1.3 - 1.9mg/dl in the last couple of year * likely due to hypertension and vascular disease (3) Atrial fibrillation with rapid ventricular response: Code(s): I48.91 - Unspecified atrial fibrillation Status: Acute Assessment and Plan: * continue rate control strategy * follow heart rate/telemetry (4) Altered mental status: Qualifiers: Altered mental status type: delirium Qualified Code(s): R41.0 - Disorientation, unspecified Code(s): R41.82 - Altered mental status, unspecified Status: Acute Assessment and Plan: * appears clinically better * continue to follow mentation (5) Acute and chronic respiratory failure with hypoxia: Code(s): J96.21 - Acute and chronic respiratory failure with hypoxia Status: Chronic Assessment and Plan: * complicated issues * she has COPD, lung cancer, and pulmonary edema * follow respiratory status * dialysis may be needed to maintain respiratory status * continue suppotive therapy (6) Non-small cell lung cancer: Qualifiers: Laterality: unspecified laterality Qualified Code(s): C34.90 - Malignant neoplasm of unspecified part of unspecified bronchus or lung Code(s): C34.90 - Malignant neoplasm of unspecified part of unspecified bronchus or lung Status: Acute Assessment and Plan: * known diagnosis * has not started on any treatment as of yet (7) Hypertension: Qualifiers: Hypertension type: essential hypertension Qualified Code(s): I10 - Essential (primary) hypertension Code(s): I10 - Essential (primary) hypertension Status: Acute Assessment and Plan: * reasonable control * follow hemodynamics Discussed case with Dr. Clemens. Will continue to follow. Subjective Date/time seen: 10/20/19 14:58 Laying in bed in no apparent distress with BiPAP in place; able to nod her head to answer simple questions; better urine output in the last 24 hours albeit with assistance of IV diuretics. Exam Narrative: Exam Narrative: General: WD/WN female in NAD Heart: IRRR, normal S1 and S2; no rub Lungs: coarse with scattered rales and rhonchi Abdomen: soft, nontender, nondistended, positive bowel sounds Extremities: no cyanosis or clubbing; no edema Skin: warm and dry Objective Data Vital Signs Vital Signs: Vital Signs Temp Pulse Resp BP Pulse Ox 10/20/19 14:00 99 31 H 138/79 98 10/20/19 12:27 86 20 97 10/20/19 12:00 36.6 C 116 H 20 145/82 H 94 10/20/19 11:40 93 10/20/19 11:24 93 10/20/19 1
--- NOTE | 2019-10-20 14:58 | PM.PNNEP ---
Progress Note: A&P Assessment and Plan (1) MELBA (acute kidney injury): Code(s): N17.9 - Acute kidney failure, unspecified Status: Acute Assessment and Plan: likely due to ATN from acute medical issues: - urine electrolytes suggest pre-renal azotemia - significant proteinuria noted as well (~ 10 grams) - renal ultrasound with normal left kidney; unable to visualize right kidney - urine eosinophils pending - respiratory issues elevated BUN and creatinine noted but making good UOP with diuretics no need for renal replacement therapy at this time continue diuretics (2) CKD (chronic kidney disease): Code(s): N18.9 - Chronic kidney disease, unspecified Status: Chronic Assessment and Plan: baseline creatinine appears to run ~ 1.3 - 1.9mg/dl in the last couple of year likely due to hypertension and vascular disease (3) Atrial fibrillation with rapid ventricular response: Code(s): I48.91 - Unspecified atrial fibrillation Status: Acute Assessment and Plan: continue rate control strategy follow heart rate/telemetry (4) Altered mental status: Qualifiers: Altered mental status type: delirium Qualified Code(s): R41.0 - Disorientation, unspecified Code(s): R41.82 - Altered mental status, unspecified Status: Acute Assessment and Plan: appears clinically better continue to follow mentation (5) Acute and chronic respiratory failure with hypoxia: Code(s): J96.21 - Acute and chronic respiratory failure with hypoxia Status: Chronic Assessment and Plan: complicated issues she has COPD, lung cancer, and pulmonary edema follow respiratory status dialysis may be needed to maintain respiratory status continue suppotive therapy (6) Non-small cell lung cancer: Qualifiers: Laterality: unspecified laterality Qualified Code(s): C34.90 - Malignant neoplasm of unspecified part of unspecified bronchus or lung Code(s): C34.90 - Malignant neoplasm of unspecified part of unspecified bronchus or lung Status: Acute Assessment and Plan: known diagnosis has not started on any treatment as of yet (7) Hypertension: Qualifiers: Hypertension type: essential hypertension Qualified Code(s): I10 - Essential (primary) hypertension Code(s): I10 - Essential (primary) hypertension Status: Acute Assessment and Plan: reasonable control follow hemodynamics Discussed case with Dr. Clemens. Will continue to follow. Subjective Date/time seen: 10/20/19 14:58 Laying in bed in no apparent distress with BiPAP in place; able to nod her head to answer simple questions; better urine output in the last 24 hours albeit with assistance of IV diuretics. Exam Narrative: Exam Narrative: General: WD/WN female in NAD Heart: IRRR, normal S1 and S2; no rub Lungs: coarse with scattered rales and rhonchi Abdomen: soft, nontender, nondistended, positive bowel sounds Extremities: no cyanosis or clubbing; no edema Skin: warm and dry Objective Data Vital Signs Vital Signs: Vital Signs Temp Pulse Resp BP Pulse Ox 10/20/19 14:00 99 31 H 138/79 98 10/20/19 12:27 86 20 97 10/20/19 12:00 36.6 C 116 H 20 145/82 H 94 10/20/19 11:40 93 10/20/19 11:24 93 10/20/19 10:00 93 22 H 159/92 H 100 10/20/19 09:59 96 10/20/19 08:10 81 23 H 97 10/20/19 08:00 36.6 C 83 24 H 151/76 H 95 10/20/19 07:56 72 21 H 98 10/20/19 06:00 72 21 H 124/81 98 10/20/19 05:48 67 18 97 10/20/19 04:00 36.8 C 73 23 H 139/92 H 95 10/20/19 03:41 84 26 H 94 10/20/19 02:00 83 20 146/71 H 94 10/20/19 00:15 83 28 H 96 10/20/19 00:00 36.8 C 88 21 H 147/93 H 93 10/19/19 22:00 82 24 H 138/97 H 96 10/19/19 21:04 88 32 H 96 10/19/19 20:00 37.1 C 74 22 H 144/82 H 97 04
--- NOTE | 2019-10-20 16:53 | PM.PNPUL ---
Progress Note: A&P Assessment and Plan (1) Acute and chronic respiratory failure with hypoxia: Code(s): J96.21 - Acute and chronic respiratory failure with hypoxia Status: Chronic Assessment and Plan: Extubated October 17 after vent day #4, worse due to atrial fib with RVR, pulmonary edema, deteriorated, now on BiPAP for resp support. She drops her saturation quickly without NPPV. Normally at home is on 1 L/min. CXR worse today; Elevated Right diaphragm, pulmonary edema, same RUL adenocarcinoma and smaller second lung primary on the left side. Restart fentanyl patch for pain. (2) COPD with emphysema: Code(s): J43.9 - Emphysema, unspecified Status: Acute Assessment and Plan: Has baseline COPD, no smoking for years, on O2 at home 1 L/min, bronchodilator therapy. continue bronchodilators for COPD Add Cornet valve to assist with clearance of secretions, NPPV support if breathing worsens. She looks ok now, heart rate is high, and controlling this will keep her from having acute d-CHF with pulmonary edema and recurrent respiratory failure. Spoke with family, and pt spoke with her family as well. They were updated; discussing dialysis. (3) Non-small cell lung cancer: Qualifiers: Laterality: unspecified laterality Qualified Code(s): C34.90 - Malignant neoplasm of unspecified part of unspecified bronchus or lung Code(s): C34.90 - Malignant neoplasm of unspecified part of unspecified bronchus or lung Status: Acute Assessment and Plan: She is improving, has controlled heart rate, atrial fibrillation=. Right upper lobe adenocarcinoma, and a left lung primary as well. has plans to get a port and start chemotherapy soon, now interrupted with respiratory failure requiring intubation More alert. 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 Subjective Date/time seen: 10/20/19 16:53 Interval history: She is stable today compared to yesterday. Afib is controlled rate is 80s. Treated with a diltiazem drip; Creatinine increased BUN 83, creat 3.0. from 69/2.2 on admission, BUN/ creat 33/1.9. WBC increased 21.1K. October 13 admitted, intubated October 14, extubated October 17. Heart rate increased, now managed with diltiazem drip. She required bipap to maintain saturation, otherwise dropped sat in under one minute. She is on 50%, 12/5 to maintain saturation of 94-96% Sputum 10/16 shows moderate WBC, few Gram (+) cocci, few yeast. Review of Systems Review of Systems: All systems reviewed & are unremarkable except as noted in HPI and below (HPI. She is alert, asking what happened? to her daughter Blossom by phone) Exam Const: General: in distress (moderate increase in respiratory effort) Other: Mild increased in accessory muscle use, Eyes: General: appearance normal, both eyes and all related structures Neck: Neck: no JVD Resp: Effort & Inspection: normal respiratory effort Auscultation: crackles Cardio: Rate: tachycardic (heart rate varying, 120s-140s) Rhythm: abnormal rhythm (atrial fibrillation, rate is higher 120s) irregularly irregular GI: Auscultation: normal bowel sounds Urinary Catheter: Urinary Catheter: patent and draining (urine is darker overall, improved after Lasix 20 mg twice) Skin: General skin exam: ecchymosis (elliot over right dorsum of the hand and forearm. ) Neuro: Cognition (Neuro): normal cognition (overall good given her level of illness) Other: Extrem: Right upper extremity: normal to inspection (ecchymoses on dorsum of right hand and arm) Psych: Other: alert, speaking softly after extu
[2019-10-20 17:25] LABS: Glucose Point of Care 135 (65-105)
[2019-10-20] MEDS: ESCITALOPRAM OXALATE 10 MG TABLET 20 MG PO (20:23)
[2019-10-20] MEDS: ALBUTEROL SULFATE NEB 2.5 MG/0.5 ML INH 5 MG INHALATION (20:36)
[2019-10-20] MEDS: IPRATROPIUM BR 0.02% INH SOLN 0.5 MG/2.5 ML VIAL INHALATION (20:36)
[2019-10-20 23:26] LABS: Glucose Point of Care 160 (65-105)
[2019-10-21] VITALS (29 sets, daily range): BP systolic 118–153; BP diastolic 62–100; PULSE 27–132; RESP 17–106; TEMP 36.1–36.6; O2SAT 90–100
[2019-10-21] MEDS: LEVOTHYROXINE SODIUM INJ 100 MCG/5 ML VIAL 50 MCG IV PUSH (05:10)
[2019-10-21 05:26] LABS: Basophils Percent Auto 0.2 % (0.2-1.2); Hemoglobin 10.2 g/dL (12.0-15.0); Immature Granulocyte Absolute 0.08 K/mm3 (0.00-0.031); Immature Granulocyte Percent A 0.7 % (0-0.5); Lymphocytes Absolute Auto 0.12 K/mm3 (0.9-3.2); Lymphocytes Percent Auto 1.1 % (18.3-44.2); Mean Corpuscular HGB Conc 32.9 g/dl (32-36); Mean Corpuscular Hemoglobin 30.2 pg (26-34); Mean Corpuscular Volume 91.7 fl (80-100); Mean Platelet Volume 10.9 fl (7.4-10.4); Monocytes Absolute Auto 0.3 K/mm3 (0.1-0.6); Monocytes Percent Auto 2.6 % (2.6-8.5); Neutrophils Absolute Auto 10.6 K/mm3 (1.3-6.7); Neutrophils Percent Auto 95.4 % (45.5-73.1); Platelet Count Result 163 k/mm3 (150-375); Red Blood Count 3.38 M/mm3 (4.2-5.4); Red Cell Distribution Width 13.7 % (11.5-14.5); White Blood Count 11.1 K/mm3 (4.5-10.0)
[2019-10-21 05:49] LABS: Blood Urea Nitrogen 104 mg/dL (7-17); Calcium 8.1 mg/dL (8.4-10.2); Carbon Dioxide 26 mmol/L (22-30); Chloride 97 mmol/L (98-107); Estimated CRCL calculation 10 ml/min; Estimated Glomerular Filt Rate 13; Glucose 165 mg/dL (65-105); Magnesium 2.1 mg/dL (1.6-2.3); Phosphorus 7.1 mg/dL (2.5-4.5); Potassium 3.8 mmol/L (3.4-5.0); Sodium 133 mmol/L (137-145)
[2019-10-21] MEDS: PANTOPRAZOLE SODIUM IV 40 MG VIAL IV PUSH (08:03)
[2019-10-21] MEDS: ALBUTEROL SULFATE NEB 2.5 MG/0.5 ML INH 5 MG INHALATION ×4 (08:57→19:46)
[2019-10-21] MEDS: IPRATROPIUM BR 0.02% INH SOLN 0.5 MG/2.5 ML VIAL INHALATION ×4 (08:57→19:46)
--- NOTE | 2019-10-21 09:54 | PM.IMPN ---
Progress Note: A&P Assessment and Plan (1) Acute and chronic respiratory failure with hypoxia: Code(s): J96.21 - Acute and chronic respiratory failure with hypoxia Status: Chronic Assessment and Plan: Successfully extubated on 10/18/2019. 10/19 Bipap 10/20 IV Lasix 60mg. Continue IV steroids, Spiriva. Continue IV doxycycline and ceftriaxone Blood cultures remain negative Wean Precedex as possible (2) Acute on chronic kidney failure: Qualifiers: Acute renal failure type: unspecified Chronic kidney disease stage: stage 3 (moderate) Qualified Code(s): N17.9 - Acute kidney failure, unspecified; N18.3 - Chronic kidney disease, stage 3 (moderate) Code(s): N17.9 - Acute kidney failure, unspecified; N18.9 - Chronic kidney disease, unspecified Status: Acute Assessment and Plan: Creatinine leveling off at 3.4 with good urine output Continue PRN furosemide and monitor lab, I/O (3) Atrial fibrillation with rapid ventricular response: Code(s): I48.91 - Unspecified atrial fibrillation Status: Acute Assessment and Plan: Started on IV diltiazem in ER but discontinued with return to sinus rhythm. Returned to atrial fibrillation with IV diltiazem restarted on 10/16/2019. Had required increase of diltiazem to 15 mg but has now weaned back to 5 mg per hour. Telemetry reviewed on 10/21/2019 with continued atrial fibrillation with heart rate controlled. Continue current IV diltiazem. (4) Hypertension: Qualifiers: Hypertension type: essential hypertension Qualified Code(s): I10 - Essential (primary) hypertension Code(s): I10 - Essential (primary) hypertension Status: Acute Assessment and Plan: Conitnue IV diltiazem IV hydralazine PRN (5) Diastolic congestive heart failure: Qualifiers: Heart failure chronicity: chronic Qualified Code(s): I50.32 - Chronic diastolic (congestive) heart failure Code(s): I50.30 - Unspecified diastolic (congestive) heart failure Status: Acute Assessment and Plan: Echocardiogram in November 2018 with EF 65-70%, diastolic dysfunction and mild pulmonary hypertension. Current echocardiogram with EF 50-55%, diastolic dysfunction Grade I, and moderate pulmonary hypertension. Continue IV furosemide PRN (6) Non-small cell lung cancer: Qualifiers: Laterality: unspecified laterality Qualified Code(s): C34.90 - Malignant neoplasm of unspecified part of unspecified bronchus or lung Code(s): C34.90 - Malignant neoplasm of unspecified part of unspecified bronchus or lung Status: Acute Assessment and Plan: Known Stage IV disease. Was to have port placed and start chemotherapy. Functional status currently poor (7) Altered mental status: Qualifiers: Altered mental status type: delirium Qualified Code(s): R41.0 - Disorientation, unspecified Code(s): R41.82 - Altered mental status, unspecified Status: Acute Assessment and Plan: Illness, medications Monitor Subjective Date/time seen: 10/21/19 09:54 Interval history: Admitted with acute on chronic respiratory failure, altered mental status, atrial fibrillation with RVR. Extubated on 10/18/2019. Now on BiPAP and transitioned to nasal cannula during exam. Complains of sore throat. Also complains of being hungry. Denies chest pain, shortness of breath and abdominal pain. Review of Systems Review of Systems: ROS unobtainable: Yes unobtainable due to medical condition Exam Narrative: Exam Narrative: General: Acute on cronically ill-appearing, thin body habitus HEENT: Mucous membranes are dry, upper and lower dentures in place, pupils are equal and reactive, no scleral icterus,, normocephalic atraumatic Neck: Loss of cervical lordosis, no significant lymphadenopathy, no JVD Respiratory: Bilateral crackles, tachypnea Cardiovascular: Regular rate and rhythm,
--- NOTE | 2019-10-21 10:02 | P.PNNP_ITS ---
Progress Note: A&P Assessment and Plan (1) MELBA (acute kidney injury): Code(s): N17.9 - Acute kidney failure, unspecified Status: Acute Assessment and Plan: * likely due to ATN from acute medical issues: - urine electrolytes suggest pre-renal azotemia - significant proteinuria noted as well (~ 10 grams) - renal ultrasound with normal left kidney; unable to visualize right kidney - urine eosinophils pending - respiratory issues * elevated BUN and creatinine noted but making good UOP with diuretics and rate of rise in BUN + creatinine appears to be decreasing (possible peak/plateau?) * no need for renal replacement therapy at this time * continue diuretics for now (2) CKD (chronic kidney disease): Code(s): N18.9 - Chronic kidney disease, unspecified Status: Chronic Assessment and Plan: * baseline creatinine appears to run ~ 1.3 - 1.9mg/dl in the last couple of year * likely due to hypertension and vascular disease (3) Atrial fibrillation with rapid ventricular response: Code(s): I48.91 - Unspecified atrial fibrillation Status: Acute Assessment and Plan: * continue rate control strategy * follow heart rate/telemetry (4) Altered mental status: Qualifiers: Altered mental status type: delirium Qualified Code(s): R41.0 - Disorientation, unspecified Code(s): R41.82 - Altered mental status, unspecified Status: Acute Assessment and Plan: * appears clinically better * continue to follow mentation (5) Acute and chronic respiratory failure with hypoxia: Code(s): J96.21 - Acute and chronic respiratory failure with hypoxia Status: Chronic Assessment and Plan: * complicated issues * she has COPD, lung cancer, and pulmonary edema * follow respiratory status * dialysis may be needed to maintain respiratory status * continue suppotive therapy (6) Non-small cell lung cancer: Qualifiers: Laterality: unspecified laterality Qualified Code(s): C34.90 - Malignant neoplasm of unspecified part of unspecified bronchus or lung Code(s): C34.90 - Malignant neoplasm of unspecified part of unspecified bronchus or lung Status: Acute Assessment and Plan: * known diagnosis * has not started on any treatment as of yet (7) Hypertension: Qualifiers: Hypertension type: essential hypertension Qualified Code(s): I10 - Essential (primary) hypertension Code(s): I10 - Essential (primary) hypertension Status: Acute Assessment and Plan: * reasonable control * follow hemodynamics Discussed case with Dr. Clemens. Will continue to follow. Subjective Date/time seen: 10/21/19 10:02 Mental status seems to be improving each day -- appears to have made it clear that she would not dialysis under any circumstance; no other acute issues to report; continues to make good urine with assistance of diuretics. Exam Narrative: Exam Narrative: General: WD/WN female in NAD Heart: IRRR, normal S1 and S2; no rub Lungs: coarse with scattered rales and rhonchi Abdomen: soft, nontender, nondistended, positive bowel sounds Extremities: no cyanosis or clubbing; no edema Skin: warm and intact Objective Data Vital Signs Vital Signs: Vital Signs Temp Pulse Resp BP Pulse Ox 10/21/19 09:14 27 L 106 H 10/21/19 09:00 81 17 99 10/21/19 08:0
--- NOTE | 2019-10-21 10:02 | PM.PNNEP ---
Progress Note: A&P Assessment and Plan (1) MELBA (acute kidney injury): Code(s): N17.9 - Acute kidney failure, unspecified Status: Acute Assessment and Plan: likely due to ATN from acute medical issues: - urine electrolytes suggest pre-renal azotemia - significant proteinuria noted as well (~ 10 grams) - renal ultrasound with normal left kidney; unable to visualize right kidney - urine eosinophils pending - respiratory issues elevated BUN and creatinine noted but making good UOP with diuretics and rate of rise in BUN + creatinine appears to be decreasing (possible peak/plateau?) no need for renal replacement therapy at this time continue diuretics for now (2) CKD (chronic kidney disease): Code(s): N18.9 - Chronic kidney disease, unspecified Status: Chronic Assessment and Plan: baseline creatinine appears to run ~ 1.3 - 1.9mg/dl in the last couple of year likely due to hypertension and vascular disease (3) Atrial fibrillation with rapid ventricular response: Code(s): I48.91 - Unspecified atrial fibrillation Status: Acute Assessment and Plan: continue rate control strategy follow heart rate/telemetry (4) Altered mental status: Qualifiers: Altered mental status type: delirium Qualified Code(s): R41.0 - Disorientation, unspecified Code(s): R41.82 - Altered mental status, unspecified Status: Acute Assessment and Plan: appears clinically better continue to follow mentation (5) Acute and chronic respiratory failure with hypoxia: Code(s): J96.21 - Acute and chronic respiratory failure with hypoxia Status: Chronic Assessment and Plan: complicated issues she has COPD, lung cancer, and pulmonary edema follow respiratory status dialysis may be needed to maintain respiratory status continue suppotive therapy (6) Non-small cell lung cancer: Qualifiers: Laterality: unspecified laterality Qualified Code(s): C34.90 - Malignant neoplasm of unspecified part of unspecified bronchus or lung Code(s): C34.90 - Malignant neoplasm of unspecified part of unspecified bronchus or lung Status: Acute Assessment and Plan: known diagnosis has not started on any treatment as of yet (7) Hypertension: Qualifiers: Hypertension type: essential hypertension Qualified Code(s): I10 - Essential (primary) hypertension Code(s): I10 - Essential (primary) hypertension Status: Acute Assessment and Plan: reasonable control follow hemodynamics Discussed case with Dr. Clemens. Will continue to follow. Subjective Date/time seen: 10/21/19 10:02 Mental status seems to be improving each day -- appears to have made it clear that she would not dialysis under any circumstance; no other acute issues to report; continues to make good urine with assistance of diuretics. Exam Narrative: Exam Narrative: General: WD/WN female in NAD Heart: IRRR, normal S1 and S2; no rub Lungs: coarse with scattered rales and rhonchi Abdomen: soft, nontender, nondistended, positive bowel sounds Extremities: no cyanosis or clubbing; no edema Skin: warm and intact Objective Data Vital Signs Vital Signs: Vital Signs Temp Pulse Resp BP Pulse Ox 10/21/19 09:14 27 L 106 H 10/21/19 09:00 81 17 99 10/21/19 08:00 36.4 C 75 20 153/100 H 94 10/21/19 06:00 36.1 C L 77 18 128/70 93 10/21/19 04:00 80 20 146/91 H 99 10/21/19 02:00 79 19 146/89 H 100 10/21/19 01:25 85 20 96 10/21/19 00:00 90 21 H 118/69 96 10/20/19 22:00 100 21 H 144/74 H 97 10/20/19 20:46 95 20 10/20/19 20:36 93 20 10/20/19 20:09 91 21 H 98 10/20/19 20:00 36.6 C 84 31 H 152/84 H 96 10/20/19 18:00 89 18 151/111 H 97 10/20/19 16:36 90 20 100 10/20/19 16:00 36.4 C 84 21 H 142/95 H 99 10/20/19 15:
--- NOTE | 2019-10-21 11:18 | PCDIET ---
Nutrition Follow-Up Complete: Nutrition Diagnosis: Inadequate oral intake related to mechanical ventilation as evidenced by NPO. Nutrition Goal: Patient to meet estimated nutritional needs. Goal not met. Patient on bipap with plan to further diurese before attempting oral intake. No dialysis at this time, per nephrology. Last recorded weight is 60 kg which is increased. I/O slightly negative. Bowel Motility: No documented bowel movement. Labs Reviewed: Glu (165), BUN (104), Cr (3.4), Na (133), Ca (8.1), PO4 (7.1) Meds Noted: Albuterol, Rocephin, Precedex, Protonix, Novolog, Atrovent, Solu Medrol Additional Notes: No reported skin breakdown. Will continue to monitor with same goal. If unable to advance diet in the next few days and aggressive nutritional therapy is desired, would consider nutrition support. Nutrition Monitoring and Evaluation: Follow up every Sunday/Sunday. Follow daily in ICU rounds.
[2019-10-21 12:33] LABS: Glucose Point of Care 164 (65-105)
--- NOTE | 2019-10-21 12:37 | WPDINTPN ---
Progress Note: A&P Assessment and Plan (1) Acute kidney injury superimposed on chronic kidney disease: Code(s): N17.9 - Acute kidney failure, unspecified; N18.9 - Chronic kidney disease, unspecified Status: Acute Assessment and Plan: MELBA on chronic kidney disease stage 3. likely due to ATN, A.fib. 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 Pt has been seeing a wash driller at [place], who was talking about dialysis with her but she had refused as per her daughter and - BUN and Creatinine elevated but stable - urine output has been adequate in response to diuresis - Renal u/s with no hydronephrosis, normal left kidney, unable to visualize right kidney - nephrology agrees with continuing with diuresis - continue to monitor (2) Atrial fibrillation with rapid ventricular response: Code(s): I48.91 - Unspecified atrial fibrillation Status: Acute Assessment and Plan: Patient went into AFib RVR overnight requiring Cardizem infusion. Now in A.fib , rate controlled - will continue Cardizem gtt - pulm edema, continue diuresis - On BiPAP. - Now MELBA, monitor renal function (3) Acute and chronic respiratory failure with hypoxia: Code(s): J96.21 - Acute and chronic respiratory failure with hypoxia Status: Chronic Assessment and Plan: patient presented with altered mental status, hypercapnic respiratory failure requiring intubation. could be related to COPD exacerbation, pneumonia. Elevated right hemidiaphragm. Was intubated on 10/14/2019 - CXR an ABG reviewed - Pt EXTUBATED on 10/18/2019 - patient developed be edema likely secondary to AFib RVR. Patient also has a history of diastolic dysfunction. continue BiPAP and diuretics - continue albuterol and Atrovent MDI sputum cultures - continue ceftriaxone and doxycycline - Wean Solu-Medrol (4) Hypertension: Qualifiers: Hypertension type: essential hypertension Qualified Code(s): I10 - Essential (primary) hypertension Code(s): I10 - Essential (primary) hypertension Status: Acute Assessment and Plan: patient normally hypertensive, will maintain blood pressure is 160-180 mmHg - on cardizem gtt - hydralazine IV p.r.n. for systolic greater than 180 mmHg (5) Non-small cell lung cancer: Qualifiers: Laterality: unspecified laterality Qualified Code(s): C34.90 - Malignant neoplasm of unspecified part of unspecified bronchus or lung Code(s): C34.90 - Malignant neoplasm of unspecified part of unspecified bronchus or lung Status: Acute Assessment and Plan: status post radiation with remission for 3 years, now recurrent stage full non-small cell lung cancer - Patient follows an oncologist at [facility]. - Was supposed to start chemotherapy after getting Port-A-Cath placed - APPRECIATE PULMONOLOGY EVALUATION AND RECOMMENDATIONS (6) Diastolic congestive heart failure: Qualifiers: Heart failure chronicity: chronic Qualified Code(s): I50.32 - Chronic diastolic (congestive) heart failure Code(s): I50.30 - Unspecified diastolic (congestive) heart failure Status: Acute Assessment and Plan: patient had an echocardiogram in November 2018 which showed EF of 65-70%, diastolic dysfunction and mild pulmonary hypertension - echocardiogram on 10/15/2019: LV systolic function is mildly reduced, EF 50-55% grade 1 diastolic dysfunction mild to moderate aortic valve regurg, mild to moderate mitral valve regurg, moderate pulmonary hypertension with RVSP of 47 mmHg (7) Dietary counseling and surveillance: Code(s): Z71.3 - Dietary counseling and surveillance Status: Acute Assessment and Plan: currently off tube feeds as patient is extubated - on BiPAP, once she improves will have speech therapy to a swallow evaluation (8) DVT prophylaxis: Code(s): Z29.9 - Encounter for prophylactic measures, unspecifie
[2019-10-21] MEDS: methylPREDNISolone SOD SUCC 40 MG VIAL IV PUSH ×2 (12:55→23:34)
[2019-10-21] MEDS: FUROSEMIDE INJ 40 MG/4 ML VIAL IV PUSH ×2 (12:55→17:06)
[2019-10-21 18:20] LABS: Kappa\\Lambda Light Chains 1.31 (0.26-1.65); Lambda Light Chain 16.5 mg/L (5.7-26.3)
[2019-10-21 18:22] LABS: Glucose Point of Care 149 (65-105)
--- NOTE | 2019-10-21 20:53 | PM.PNPUL ---
Progress Note: A&P Assessment and Plan (1) Acute and chronic respiratory failure with hypoxia: Code(s): J96.21 - Acute and chronic respiratory failure with hypoxia Status: Chronic Assessment and Plan: Extubated October 17 after vent day #4, worse due to atrial fib with RVR, pulmonary edema, deteriorated, now on BiPAP for resp support. She drops her saturation quickly without NPPV. Normally at home is on 1 L/min. CXR worse today; Elevated Right diaphragm, pulmonary edema, same RUL adenocarcinoma and smaller second lung primary on the left side. Restarted fentanyl patch for pain. (2) COPD with emphysema: Code(s): J43.9 - Emphysema, unspecified Status: Acute Assessment and Plan: Has baseline COPD, no smoking for years, on O2 at home 1 L/min, bronchodilator therapy. continue bronchodilators for COPD; Cornet valve to assist with clearance of secretions, continue BiPAP. No reintubation. She looks ok now, heart rate is lower. (3) Non-small cell lung cancer: Qualifiers: Laterality: unspecified laterality Qualified Code(s): C34.90 - Malignant neoplasm of unspecified part of unspecified bronchus or lung Code(s): C34.90 - Malignant neoplasm of unspecified part of unspecified bronchus or lung Status: Acute Assessment and Plan: She is improving, has controlled heart rate, atrial fibrillation=. Right upper lobe adenocarcinoma, and another lung primary on the left. Was planning to get a port and start chemotherapy, now too ill. More alert. 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 Subjective Date/time seen: 10/21/19 20:53 She required BiPAP overnight, mentation is intact. She is consistent and clear that she does not want dialysis, prefers to go home Family is aware. Atrial fib has been controlled with diltiazem drip. Review of Systems Review of Systems: All systems reviewed & are unremarkable except as noted in HPI and below (HPI. ) Exam Const: General: in distress (moderate increase in respiratory effort) Other: Mild increased in accessory muscle use, Eyes: General: appearance normal, both eyes and all related structures Neck: Neck: no JVD Resp: Effort & Inspection: normal respiratory effort Auscultation: crackles Cardio: Rate: tachycardic (heart rate varying, 110s better) Rhythm: abnormal rhythm (atrial fibrillation, rate is better 110s) irregularly irregular GI: Auscultation: normal bowel sounds Skin: General skin exam: ecchymosis (elliot over right dorsum of the hand and forearm. ) Extrem: Right upper extremity: normal to inspection (ecchymoses on dorsum of right hand and arm) Psych: Other: alert, speaking softly Objective Data Vital Signs Vital Signs: Vital Signs - 24 hr 10/20/19 22:00 10/21/19 00:00 10/21/19 01:25 Temperature Pulse Rate 100 90 85 Respiratory Rate 21 H 21 H 20 Blood Pressure 144/74 H 118/69 Pulse Oximetry 97 96 96 10/21/19 02:00 10/21/19 04:00 10/21/19 06:00 Temperature 36.1 C L Pulse Rate 79 80 77 Respiratory Rate 19 20 18 Blood Pressure 146/89 H 146/91 H 128/70 Pulse Oximetry 100 99 93 10/21/19 08:00 10/21/19 09:00 10/21/19 09:14 Temperature 36.4 C Pulse Rate 99 81 27 L Respiratory Rate 23 H 17 106 H Blood Pressure 153/100 H Pulse Oximetry 100 99 10/21/19 10:00 10/21/19 10:56 10/21/19 11:17 Temperature 36.4 C Pulse Rate 105 H 101 H 94 Respiratory Rate 19 21 H 17 Blood Pressure 125/72 Pulse Oximetry 98 100 100 10/21/19 12:00 10/21/19 14:00 10/21/19 14:22 Temperature 36.5 C 36.4 C L Pulse Rate 102 H 111 H 99 Respiratory Rate 34 H 17 Blood Pressure 139/89 140/75 Pulse Oximetry 96 93 10/21/19 14:25 10/21/19 14:26 10/21/19 14:48 Temperature Pulse Rate 97 98 132 H Respiratory Rate 23 H 23 H 28 H Blood Pressure Pulse Oximetry 100 10/21/19 16:00 10/21/19 17
[2019-10-21 23:56] LABS: Glucose Point of Care 169 (65-105)
[2019-10-22] VITALS (14 sets, daily range): BP systolic 132–157; BP diastolic 74–108; PULSE 89–128; RESP 15–22; TEMP 36.2–37.2; O2SAT 94–100
[2019-10-22] MEDS: LEVOTHYROXINE SODIUM INJ 100 MCG/5 ML VIAL 50 MCG IV PUSH (05:33)
[2019-10-22 05:54] LABS: Glucose Point of Care 161 (65-105)
[2019-10-22 07:52] LABS: Hemoglobin 10.3 g/dL (12.0-15.0); Mean Corpuscular HGB Conc 33.2 g/dl (32-36); Mean Corpuscular Hemoglobin 30.6 pg (26-34); Mean Platelet Volume 10.3 fl (7.4-10.4); Platelet Count Result 164 k/mm3 (150-375); Red Blood Count 3.37 M/mm3 (4.2-5.4); Red Cell Distribution Width 13.9 % (11.5-14.5); White Blood Count 12.3 K/mm3 (4.5-10.0)
[2019-10-22 08:04] LABS: Blood Urea Nitrogen 105 mg/dL (7-17); Calcium 8.5 mg/dL (8.4-10.2); Carbon Dioxide 27 mmol/L (22-30); Chloride 98 mmol/L (98-107); Estimated CRCL calculation 8 ml/min; Estimated Glomerular Filt Rate 12; Glucose 168 mg/dL (65-105); Potassium 3.4 mmol/L (3.4-5.0); Sodium 135 mmol/L (137-145)
[2019-10-22 08:08] LABS: Magnesium 2.1 mg/dL (1.6-2.3); Phosphorus 6.5 mg/dL (2.5-4.5)
[2019-10-22] MEDS: PANTOPRAZOLE SODIUM IV 40 MG VIAL IV PUSH (08:24)
[2019-10-22] MEDS: FUROSEMIDE INJ 40 MG/4 ML VIAL IV PUSH (08:24)
[2019-10-22] MEDS: ALBUTEROL SULFATE NEB 2.5 MG/0.5 ML INH 5 MG INHALATION ×2 (09:15→12:27)
[2019-10-22] MEDS: IPRATROPIUM BR 0.02% INH SOLN 0.5 MG/2.5 ML VIAL INHALATION ×2 (09:15→12:27)
--- NOTE | 2019-10-22 09:41 | WPDINTPN ---
Progress Note: A&P Assessment and Plan (1) Acute kidney injury superimposed on chronic kidney disease: Code(s): N17.9 - Acute kidney failure, unspecified; N18.9 - Chronic kidney disease, unspecified Status: Acute Assessment and Plan: MELBA on chronic kidney disease stage 3. likely due to ATN, A.fib. 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 Pt has been seeing a customer service clerk at [place], who was talking about dialysis with her but she had refused as per her daughter and - BUN and Creatinine elevated but stable - urine output has been adequate in response to diuresis - Renal u/s with no hydronephrosis, normal left kidney, unable to visualize right kidney - nephrology agrees with continuing with diuresis - continue to monitor (2) Atrial fibrillation with rapid ventricular response: Code(s): I48.91 - Unspecified atrial fibrillation Status: Acute Assessment and Plan: Patient went into AFib RVR overnight requiring Cardizem infusion. Now in A.fib , rate controlled - will continue Cardizem gtt - pulm edema, continue diuresis - On BiPAP. - Now MELBA, monitor renal function (3) Acute and chronic respiratory failure with hypoxia: Code(s): J96.21 - Acute and chronic respiratory failure with hypoxia Status: Chronic Assessment and Plan: patient presented with altered mental status, hypercapnic respiratory failure requiring intubation. could be related to COPD exacerbation, pneumonia. Elevated right hemidiaphragm. Was intubated on 10/14/2019 - CXR reviewed - Pt EXTUBATED on 10/18/2019 - patient developed be edema likely secondary to AFib RVR. Patient also has a history of diastolic dysfunction. continue BiPAP and diuretics - continue albuterol and Atrovent MDI sputum cultures - continue ceftriaxone and doxycycline - Wean Solu-Medrol (4) Hypertension: Qualifiers: Hypertension type: essential hypertension Qualified Code(s): I10 - Essential (primary) hypertension Code(s): I10 - Essential (primary) hypertension Status: Acute Assessment and Plan: patient normally hypertensive, will maintain blood pressure is 160-180 mmHg - on cardizem gtt - hydralazine IV p.r.n. for systolic greater than 180 mmHg (5) Non-small cell lung cancer: Qualifiers: Laterality: unspecified laterality Qualified Code(s): C34.90 - Malignant neoplasm of unspecified part of unspecified bronchus or lung Code(s): C34.90 - Malignant neoplasm of unspecified part of unspecified bronchus or lung Status: Acute Assessment and Plan: status post radiation with remission for 3 years, now recurrent stage full non-small cell lung cancer - Patient follows an oncologist at [facility]. - Was supposed to start chemotherapy after getting Port-A-Cath placed - APPRECIATE PULMONOLOGY EVALUATION AND RECOMMENDATIONS (6) Diastolic congestive heart failure: Qualifiers: Heart failure chronicity: chronic Qualified Code(s): I50.32 - Chronic diastolic (congestive) heart failure Code(s): I50.30 - Unspecified diastolic (congestive) heart failure Status: Acute Assessment and Plan: patient had an echocardiogram in November 2018 which showed EF of 65-70%, diastolic dysfunction and mild pulmonary hypertension - echocardiogram on 10/15/2019: LV systolic function is mildly reduced, EF 50-55% grade 1 diastolic dysfunction mild to moderate aortic valve regurg, mild to moderate mitral valve regurg, moderate pulmonary hypertension with RVSP of 47 mmHg (7) Dietary counseling and surveillance: Code(s): Z71.3 - Dietary counseling and surveillance Status: Acute Assessment and Plan: currently off tube feeds as patient is extubated - on BiPAP, once she improves will have speech therapy to a swallow evaluation (8) DVT prophylaxis: Code(s): Z29.9 - Encounter for prophylactic measures, unspecified
--- NOTE | 2019-10-22 09:47 | PM.IMPN ---
Subjective Date/time seen: 10/22/19 09:47 Objective Data Vital Signs Vital Signs: Vital Signs - 24 hr 10/21/19 10:00 10/21/19 10:56 10/21/19 11:17 Temperature 97.6 F Pulse Rate 105 H 101 H 94 Respiratory Rate 19 21 H 17 Blood Pressure 125/72 Pulse Oximetry 98 100 100 10/21/19 12:00 10/21/19 14:00 10/21/19 14:22 Temperature 97.7 F 97.5 F L Pulse Rate 102 H 111 H 99 Respiratory Rate 34 H 17 Blood Pressure 139/89 140/75 Pulse Oximetry 96 93 10/21/19 14:25 10/21/19 14:26 10/21/19 14:48 Temperature Pulse Rate 97 98 132 H Respiratory Rate 23 H 23 H 28 H Blood Pressure Pulse Oximetry 100 10/21/19 16:00 10/21/19 17:21 10/21/19 17:22 Temperature 97.7 F Pulse Rate 102 H 102 H 107 H Respiratory Rate 18 23 H 23 H Blood Pressure 132/73 Pulse Oximetry 90 100 10/21/19 17:38 10/21/19 18:00 10/21/19 19:41 Temperature 97.8 F Pulse Rate 126 H 122 H 123 H Respiratory Rate 23 H 24 H 23 H Blood Pressure 140/86 135/85 Pulse Oximetry 95 100 10/21/19 19:47 10/21/19 19:49 10/21/19 20:00 Temperature Pulse Rate 115 H 115 H 112 H Respiratory Rate 25 H 25 H 22 H Blood Pressure Pulse Oximetry 100 100 10/21/19 22:00 10/21/19 23:21 10/21/19 23:56 Temperature 97.9 F Pulse Rate 105 H 104 H 97 Respiratory Rate 20 19 19 Blood Pressure 122/71 124/62 Pulse Oximetry 99 98 98 10/22/19 00:00 10/22/19 02:00 10/22/19 02:16 Temperature Pulse Rate 115 H 89 101 H Respiratory Rate 22 H 17 Blood Pressure 132/78 Pulse Oximetry 100 95 96 10/22/19 03:40 10/22/19 04:00 10/22/19 04:58 Temperature 97.6 F Pulse Rate 100 102 H Respiratory Rate 15 22 H Blood Pressure 155/74 H Pulse Oximetry 97 99 97 10/22/19 06:00 10/22/19 08:00 10/22/19 09:15 Temperature 97.9 F 97.2 F L Pulse Rate 89 94 108 H Respiratory Rate 18 15 Blood Pressure 154/108 H Pulse Oximetry 96 94 Intake/Output Intake/Output: Intake & Output 10/19/19 10/20/19 10/21/19 10/22/19 23:59 23:59 23:59 23:59 Intake Total 639 744 750 100 Output Total 700 1700 1250 750 Balance -61 -956 -500 -650 Meds/Results Medications: Active Medications Generic Name Dose Route Start Last Admin Trade Name Freq PRN Reason Stop Dose Admin Albuterol 2 puff 10/20/19 18:07 Proventil Hfa INHALATION QIDRT PRN Shortness Of Breath Or Wheezing Albuterol 5 mg 10/20/19 20:00 10/21/19 19:46 Albuterol Sulf Neb 2.5mg/0.5ml INHALATION 5 mg QIDRT MENG Administration Dextrose 12.5 gm 10/15/19 10:31 10/15/19 18:00 Dextrose 50% Syringe IV PUSH 12.5 gm PRN PRN Administration Hypoglycemia Protocol Enoxaparin Sodium 30 mg 10/15/19 11:05 10/19/19 08:07 Lovenox SUB-Q 30 mg DAILY MENG Administration Escitalopram Oxalate 20 mg 10/18/19 21:00 10/21/19 20:10 Lexapro PO Not Given HS MENG Furosemide 40 mg 10/21/19 11:25 10/22/19 08:24 Lasix Inj IV PUSH 40 mg BID MENG Administration Glucagon 1 mg 10/15/19 10:31 Glucagon For Inj IM PRN PRN Hypoglycemia Protocol Glucose 15 gm 10/15/19 10:31 Glutose 15 PO PRN PRN Hypoglycemia Protocol Hydralazine HCl 10 mg 10/19/19 10:08 Apresoline Hcl Inj IV PUSH Q8H PRN SystolicBP above 170 Doxycycline Hyclate 100 mg/ 100 mls @ 100 mls/hr 10/15/19 09:00 10/22/19 08:24 Dextrose IVPB 100 mls/hr Q12HR MENG Administration Ceftriaxone Sodium/Dextrose 1 gm in 50 mls @ 100 mls/hr 10/15/19 21:00 10/21/19 20:40 Rocephin 1 Gm/D5w 50 Ml IVPB Infused Q24H MENG Infusion Dextrose 1,000 mls @ 100 mls/hr 10/15/19 10:31 Dextrose 5% 1,000 Ml IVPB PRN PRN Hypoglycemia Protocol Diltiazem HCl 100 mg in 100 mls @ 5 mls/hr 10/18/19 17:30 10/21/19 23:34 Cardizem 100 Mg/D5w 100 Ml IV CONT 5 mg/hr .Q20H MENG 5 mls/hr Administration Protocol 5 MG/HR Insulin Aspart 2 - 5 units 10/15/19 18:00 10/22/19 06:25
--- NOTE | 2019-10-22 10:59 | PCDIET ---
ICU Rounding Note: Patient is NPO with plan for swallow evaluation today. Last recorded weight is 46.0kg which is significantly decreased. -I/O, but would recommend reweighing patient to ensure accurate. Noted weight is just below admission weight. Bowel Motility: +BM x 1 on 10/21/19. Labs Reviewed: BUN (105), Cr (3.6), PO4 (6.5), Na (135) Meds Noted: Albuterol, Rocephin, Precedex, Lasix, Novolog, Atrovent, Solu Medrol, Protonix Additional Notes: No documented skin breakdown. Will follow for swallow evaluation results/plan for nutrition. Following daily in ICU rounds. Assessing/reassessing every 3 days.
--- NOTE | 2019-10-22 11:32 | P.CDI_ITS ---
CDI Query Clarification Request - worse due to atiral fib with RVR, pulmonary edema and heart rate is high, and controlling this will keep her from having acute d-CHF with pulmonary edema documented by Dr Callahan -Pt is on Lasix 40mg IV BID -Chronic diastolic CHF has been documented by hospitalist Please clarify acuity of diastolic CHF. * Acute * Chronic * Acute on CHronic * Unable to determine <Jinny Castro RN - Last Filed: 10/22/19 11:38>
--- NOTE | 2019-10-22 12:05 | PM.DS ---
DS: Diagnosis Admitting Diagnosis Admitting Diagnosis: Disorientation, unspecified Discharge Diagnosis (1) Acute and chronic respiratory failure with hypoxia: Code(s): J96.21 - Acute and chronic respiratory failure with hypoxia Status: Chronic Assessment and Plan: Successfully extubated on 10/18/2019. 10/19 Bipap 10/20 IV Lasix 60mg. Continued IV steroids until discharge, then PO steroids Spiriva. Completed IV doxycycline and ceftriaxone Blood cultures remain negative (2) Acute on chronic kidney failure: Qualifiers: Acute renal failure type: unspecified Chronic kidney disease stage: stage 3 (moderate) Qualified Code(s): N17.9 - Acute kidney failure, unspecified; N18.3 - Chronic kidney disease, stage 3 (moderate) Code(s): N17.9 - Acute kidney failure, unspecified; N18.9 - Chronic kidney disease, unspecified Status: Acute Assessment and Plan: Creatinine leveling off at 3.6 with good urine output Continue PO furosemide (3) Atrial fibrillation with rapid ventricular response: Code(s): I48.91 - Unspecified atrial fibrillation Status: Acute Assessment and Plan: Started on IV diltiazem in ER but discontinued with return to sinus rhythm. Returned to atrial fibrillation with IV diltiazem restarted on 10/16/2019. Had required increase of diltiazem to 15 mg but has now weaned back to 5 mg per hour. Telemetry reviewed on 10/22/2019 with continued atrial fibrillation with heart rate controlled. Diltiazem to PO (4) Hypertension: Qualifiers: Hypertension type: essential hypertension Qualified Code(s): I10 - Essential (primary) hypertension Code(s): I10 - Essential (primary) hypertension Status: Acute Assessment and Plan: PO diltiazem (5) Diastolic congestive heart failure: Qualifiers: Heart failure chronicity: acute on chronic Qualified Code(s): I50.33 - Acute on chronic diastolic (congestive) heart failure Code(s): I50.30 - Unspecified diastolic (congestive) heart failure Status: Acute Assessment and Plan: Echocardiogram in November 2018 with EF 65-70%, diastolic dysfunction and mild pulmonary hypertension. Current echocardiogram with EF 50-55%, diastolic dysfunction Grade I, and moderate pulmonary hypertension. Continue furosemide PO (6) Non-small cell lung cancer: Qualifiers: Laterality: unspecified laterality Qualified Code(s): C34.90 - Malignant neoplasm of unspecified part of unspecified bronchus or lung Code(s): C34.90 - Malignant neoplasm of unspecified part of unspecified bronchus or lung Status: Acute Assessment and Plan: Known Stage IV disease. Was to have port placed and start chemotherapy. Functional status currently poor (7) Altered mental status: Qualifiers: Altered mental status type: delirium Qualified Code(s): R41.0 - Disorientation, unspecified Code(s): R41.82 - Altered mental status, unspecified Status: Acute Assessment and Plan: Illness, medications Seems to be near baseline DS: Summary Hospital Course Reason for hospitalization: Acute respiratory failure Hospital Course: Patient was admitted 10/13 with dyspnea. Found to be in acute congestive heart failure with atrial fibrillation rapid ventricular response. Dyspnea progressed so that intubation was required in the orthopedic technician hours of 10/14. She was treated with ceftriaxone and doxycycline and received IV diltiazem. Diuresis with IV furosemide. Extubated 10/17. She experienced acute kidney injury with creatinine rising from 1.9-3.6 by discharge. Patient was against initiation of dialysis. Because of her stage IV lung cancer patient and family opted for comfort care with hospice. Time Spent with Patient Time attestation: Total time spent providing and/or coordinating discharge services: 36 min Exam Narrative: Exam Narrative: HEENT: Michelle
[2019-10-22] MEDS: POTASSIUM CHLORIDE 20 MEQ TABLET 40 MEQ PO (13:10)
--- NOTE | 2019-10-22 13:51 | PCSTNOTE ---
Per nursing, patient is discharging to hospice and bedside eval is no longer warranted.
== END 2019-10-22 13:55 | disposition hospice, home (50) | DRG 208 ==
LOC: ANHED 21:44 → ANHIMU 22:35 → ANHICU 23:16
PROVIDERS: Hospitalist; Internal Medicine; Internal Medicine Nephrology; Admitting Provider Internal Medicine; Emergency Provider Emergency Medicine; PCP Family Medicine; Visit Provider Internal Medicine
DX: J96.21 Acute and chronic respiratory failure with hypoxia (principal); I50.33 Acute on chronic diastolic (congestive) heart failure; N17.9 Acute kidney failure, unspecified; C34.11 Malignant neoplasm of upper lobe, right bronchus or lung; I13.0 Hypertensive heart and chronic kidney disease with heart failure and stage 1 through stage 4 chronic kidney disease, or unspecified chronic kidney disease; E87.2 Acidosis; J43.9 Emphysema, unspecified; N18.3 Chronic kidney disease, stage 3 (moderate); M32.9 Systemic lupus erythematosus, unspecified; Z99.81 Dependence on supplemental oxygen; I95.1 Orthostatic hypotension; F41.9 Anxiety disorder, unspecified; D63.1 Anemia in chronic kidney disease; Z92.3 Personal history of irradiation; K57.30 Diverticulosis of large intestine without perforation or abscess without bleeding; K64.8 Other hemorrhoids; G89.4 Chronic pain syndrome; Z79.891 Long term (current) use of opiate analgesic; K76.0 Fatty (change of) liver, not elsewhere classified; Z22.322 Carrier or suspected carrier of Methicillin resistant Staphylococcus aureus; M19.90 Unspecified osteoarthritis, unspecified site; M81.0 Age-related osteoporosis without current pathological fracture; N32.81 Overactive bladder; J98.6 Disorders of diaphragm; I48.0 Paroxysmal atrial fibrillation; I73.9 Peripheral vascular disease, unspecified; I73.00 Raynaud's syndrome without gangrene; M41.9 Scoliosis, unspecified; M35.00 Sjogren syndrome, unspecified; E89.0 Postprocedural hypothyroidism; Z90.49 Acquired absence of other specified parts of digestive tract; T42.4X5A Adverse effect of benzodiazepines, initial encounter; Z87.891 Personal history of nicotine dependence; R13.10 Dysphagia, unspecified; E89.2 Postprocedural hypoparathyroidism; E55.9 Vitamin D deficiency, unspecified; J38.00 Paralysis of vocal cords and larynx, unspecified; Z90.710 Acquired absence of both cervix and uterus; Z85.828 Personal history of other malignant neoplasm of skin; Z96.641 Presence of right artificial hip joint
CPT/HCPCS: 36415; 36600; 51701; 70450; 71045; 76775; 80048; 80053; 80069; 81001; 82375; 82533; 82550; 82570; 82805; 83050; 83605; 83735; 83880; 83883; 84100; 84156; 84300; 84484; 85025; 85027; 85610; 85730; 85999; 87040; 87070; 87205; 93005; 93306; 93923; 94002; 94003; 94640; 94667; 96365; 96366; 96367; 96375; 99291; A9270; C1751; C9113; G0378; J0131; J0360; J0696; J1630; J1650; J1940; J2060; J2704; J2920; J7030; J7040; J7120